=== PATIENT | female | born 2000 | race Two or more races ===

== ENCOUNTER 2024-06-13 13:05 | Outpatient (OUT) | payer OTHER, SELFPAY ==
--- NOTE | 2024-06-13 13:08 | US_ITS ---
[address] [address] Patient Name: ABBEY MORALES MRN: [id number] date: 2000 Sex: F Assigned Patient Location: [facility] Current Patient Location: [facility] Accession/Order Number: [id number] Exam Date: 06/13/2024 13:08 Report Date: 06/13/2024 14:17 At the request of: REMI VILLA Procedure: US OB >= 14 weeks Fetus EXAMINATION: US OB >= 14 weeks Fetus HISTORY: MISSED MENSES COMPARISON: No relevant comparison available. TECHNIQUE: Transabdominal sonographic examination was performed for obstetrical and evaluation. FINDINGS: Number: 1 Heart Rate: 142 bpm H.B. /min Amniotic Fluid Volume: 12.8 cm, largest fluid pocket 4.1 cm Placental Location: Cephalic presentation, longitudinal lie Cervix Length: 4.1 cm, closed BIOMETRY: BPD: 8.41 cm; 33 weeks 6 days; HC: 31.64 cm; ; 35 weeks 4 days AC: 32.11 cm; ; 36 weeks 0 days FL: 7.17 cm; ; 36 weeks 5 days EFW:2566.73 g; 6 lbs. 3 oz. FL/AC: 22.33 FL/BPD: 85.26 HC/AC: 0.99 GESTATIONAL AGE: Age by EDC: Unknown Age by current US: 35 weeks 4 days UMANG by current US: 2024-07-14 US/US OB >= 14 weeks Fetus IMPRESSION: Viable amaral intrauterine gestation measuring 35 weeks 4 days *Reference: [facility] Practice Guideline for the performance of Obstetric Ultrasound Examinations, July 02, 2007. Electronically authenticated by: DAGMAR PARRA Date: 06/13/2024 14:17
== END 2024-06-13 13:06 | disposition home or self-care (01) ==
LOC: NOMS 13:06
PROVIDERS: Visit Provider Obstetrics & Gynecology
DX: Z34.93 Encounter for supervision of normal pregnancy, unspecified, third trimester (principal); Z3A.35 35 weeks gestation of pregnancy; N92.6 Irregular menstruation, unspecified
CPT/HCPCS: 76815

== ENCOUNTER 2024-06-18 19:36 | Outpatient (REF) | payer OTHER, SELFPAY | END 2024-06-18 19:37 | disposition home or self-care (01) | LOC: LAB 19:36 | PROVIDERS: Visit Provider Obstetrics & Gynecology | DX: Z34.93 Encounter for supervision of normal pregnancy, unspecified, third trimester (principal) | CPT/HCPCS: 87081; 87150 ==

== ENCOUNTER 2024-06-25 14:08 | Outpatient (OUT) | payer OTHER, SELFPAY ==
--- NOTE | 2024-06-25 | US_ITS ---
[address] [address] Patient Name: ABBEY OMRALES MRN: [id number] date: 2000 Sex: F Assigned Patient Location: [facility] Current Patient Location: Accession/Order Number: [id number] Exam Date: 06/25/2024 14:36 Report Date: 06/26/2024 04:19 At the request of: REMI VILLA Procedure: US OB BPP w non-stress EXAMINATION: US OB BPP w non-stress HISTORY:LATE CARE COMPARISON: No relevant comparison available. TECHNIQUE: Ultrasound biophysical profile was performed in the radiology department. BREATHING MOVEMENTS: 2 GROSS BODY MOVEMENTS: 2 TONE: 2 QUALITATIVE AMNIOTIC FLUID VOLUME: 2 PRESENTATION: CEPHALIC HEART RATE: 145.95 bpm AMNIOTIC FLUID VOLUME: 8.24 cm GESTATIONAL AGE: 37 weeks 2 days US/US OB BPP w non-stress IMPRESSION: Total biophysical profile score: 8 Electronically authenticated by: AMBREEN DOWNEY Date: 06/26/2024 04:19
--- OUTSIDE RECORDS SUMMARY | 2024-06-25 14:32 | XMS_ITS | CCD ---
Author Organization [facility] Care Team Providers Care Molecular Biology Scientist Name Role Phone DAISY ., DR KHALIL Admitting Unavailable DAISY ., DR KHALIL Attending Unavailable REQUEST, DR CENTENO LISTED Primary Care Unavaila ble DAISY ., DR KHALIL Consulting Unavailable ZieberSteven Consulting Unavailable DAISY ., DR KHALIL Attending Unavailable REQUEST, DR CENTENO LISTED Primary Care Unavaila ble ADISY ., DR KHALIL Admitting Unavailable DAISY ., DR KHALIL Admitting Unavailable REQUEST, DR CENTENO LISTED Primary Care Unavaila ble DAISY ., DR KHALIL Attending Unavailable DAISY ., DR KHALIL Consulting Unavailable ZiSteven rudd Consulting Unavailable DAISY ., DR KHALIL Procedure Practitioner Unavail able KARASIK ., DR MAYNARD Consulting Unavailabl e DAISY ., DR KHALIL Admitting Unavailable REQUEST, DR CENTENO LISTED Primary Care Unavaila ble DAISY ., DR KHALIL Attending Unavailable DAISY ., DR KHALIL Consulting Unavailable DAISY ., DR KHALIL Admitting Unavailable DAISY ., DR KHALIL Attending Unavailable REQUEST, DR CENTENO LISTED Primary Care Unavaila ble WEST, DR DAGMAR Dennis Consulting Unavailable DAISY ., DR KHALIL Admitting Unavailable REQUEST, DR CENTENO LISTED Primary Care Unavaila ble DAISY ., DR KHALIL Attending Unavailable DAISY ., DR KHALIL Consulting Unavailable DAISY ., DR KHALIL Admitting Unavailable REQUEST, DR CENTENO LISTED Primary Care Unavaila ble DAISY ., DR KHALIL Attending Unavailable ZEINAB ., VENITA Consulting Unavailable REQUEST, DR CENTENO LISTED Primary Care Unavaila ble ZEINAB ., VENITA Admitting Unavailable ZEINAB ., VENITA Attending Unavailable DIASY ., DR KHALIL Admitting Unavailable FILLMORE, DR DAGMAR Dennis Consulting Unavailable REQUEST, DR NONE LISTED Primary Care Unavaila guilherme VILLA ., DR KHALIL Attending Unavailable DAISY ., DR KHALIL Consulting Unavailable [facility] Primary Care Provider DO [facility] DO Channing Riley Emergency Provider Mikel Blount Attending Unavailable [facility] Primary Care Unavaila Mikel Jurado Admitting Unavailable [facility] Primary Care Unavaila Channing Niño Admitting Unavailable Channing Riley Attending Unavailable RMEI VILLA Attending Unavailable Allergies Allergy Classification Reported Allergen(s) Allergy Type Date of Onset Reaction(s) Facility (2 sources) diphenhydrAMINE Drug Allergy 10-02-19 20 [facility] (2 sources) Penicillin Drug Allergy 10-02-19 10 [facility] (3 sources) Amoxicillin; Translations: [amoxicillin] Drug Allergy 08-28-20 Unknown Reaction [facility] (3 sources) diphenhydrAMINE; Translations: [diphenhydramine] Drug Allergy 08-28-20 [facility] (3 sources) Penicillins; Translations: [Penicillins] Allergy to substance 08-28-20 Unknown Reaction [facility] Medications Current Medications Medication Drug Class(es) Dates Sig (Normalized) Sig (Original) fluticasone propionate 0.05 mg/actuat metered dose nasal spray (1 source) Corticosteroid Start: 01-05-2024 take 1 spray(s) nasal route twice daily Fluticasone Propionate (24 Hour Allergy Relief) 50 mcg/actuation spray,suspension Active 1 SPRAY INTRANASAL Twice daily January 05, 2024 12:00am administer into each nostril Completed/Discontinued Medications Medication Drug Class(es) Dates Sig (Normalized) Sig (Original) acetaminophen 325 mg oral tablet (2 sources) Start: 10-03-2017 End: 11-25-2018 Acetaminophen (Tylenol) 325 mg Tablet Discontinued 500 MG PO Q8H October 03, 2017 1:00am November 25, 2018 1:31am [id number] 200 actuat albuterol 0.09 mg/actuat metered dose inhaler (4 sources) beta2-Adrenergic Agonist Start: 12-07-2019 End: 01-05-2024 take 1 puff(s) by inhalation four times daily Albuterol Sulfate Discontinued 2 PUFF INHALATION Four times daily December 07, 2019 1:00am January 05, 2024 5:42am Start: 01-25-2018 End: 11-25-2018 take 1 puff(s) by inhalation every six hours Albuterol Sulfate Discontinued 1 - 2 PUFF INHALATION Q6H January 25, 2018 12:00am November 25, 2018 1:31am Start: 01-25-2018 End: 11-25-2018 take 1 puff(s) by inhalation every six hours Albuterol Sulfate Discontinued 1 - 2 PUFF INHALATION Q6H January 24, 2018 11:00pm November 25, 2018 12:31am chlorhexidine gluconate 1.2 mg/ml mouthwash (2 sources) Start: 04-18-2022 End: 08-28-2023 take 1 mL by mouth twice daily Chlorhexidine Gluconate (Peridex) 0.12 % Mouthwash Discontinued 15 ML MUCOUS MEM Twice daily April 18, 2022 12:00am August 28, 2023 2:15am rinse mouth for at least 30 secs clindamycin 300 mg oral capsule (4 sources) Lincosamide Antibacterial Start: 04-18-2022 End: 01-05-2024 take 1 capsule by mouth three times daily Clindamycin Hcl (Cleocin Hcl) 300 mg capsule Discontinued 300 MG PO Three times daily 21 04August 28, 2023 1:00am January 05, 2024 5:42am cyclobenzaprine hydrochloride 10 mg oral tablet (2 sources) Muscle Relaxant Start: 04-29-2019 End: 12-07-2019 take 10 mg by mouth three times daily Cyclobenzaprine Discontinued 10 MG PO Three times daily April 29, 2019 12:00am December 07, 2019 12:40pm docusate sodium 100 mg oral capsule (2 sources) Start: 03-31-2021 End: 01-05-2024 take 1 capsule by mouth once daily Docusate Sodium (Stool Softener) 100 mg capsule Discontinued 100 MG PO Daily March 31, 2021 12:00am January 05, 2024 5:42am Doxylamine-Pyridoxin e (Vit B6) (Diclegis) 10-10 mg tablet,delayed release (DR/EC) (2 sources) Start: 05-30-2020 End: 03-31-2021 take 1 tablet by mouth twice daily Doxylamine-Pyridoxin e (Vit B6) (Diclegis) 10-10 mg tablet,delayed release (DR/EC) Discontinued 1 TAB PO Twice daily May 30, 2020 11:22pm March 31, 2021 6:01pm Start: 05-30-2020 End: 03-31-2021 take 1 tablet by mouth twice daily Doxylamine-Pyridoxine (Vit B6) (Diclegis ) 10-10 mg tablet,delayed release (DR/EC) Discontinued 1 TAB PO Twice daily May 30, 2020 10:22pm March 31, 2021 5:01pm ferrous sulfate 325 mg oral tablet (2 sources) Start: 03-31-2021 End: 01-05-2024 take 1 tablet by mouth once daily Ferrous Sulfate (Ferosul) 325 mg (65 mg iron) tablet Discontinued 325 MG PO Daily March 31, 2021 12:00am January 05, 2024 5:42am ibuprofen 800 mg oral tablet (2 sources) Nonsteroidal Anti-inflammato ry Drug Start: 04-29-2019 End: 12-07-2019 take 800 mg by mouth three times daily Ibuprofen Discontinued 800 MG PO Three times daily April 29, 2019 12:00am December 07, 2019 12:40pm meclizine hydrochloride 25 mg oral tablet (2 sources) Antiemetic Start: 10-03-2017 End: 01-25-2018 take 25 mg by mouth three times daily Meclizine Discontinued 25 MG PO Three times daily October 03, 2017 1:00am January 25, 2018 6:48am 1 ml medroxyPROGESTERone acetate 150 mg/ml prefilled syringe (2 sources) Progestin Start: 10-03-2017 End: 11-25-2018 inject 150 mg by intramuscular injection every three months Medroxyprogesterone (Depo-Provera) 150 mg/mL Syringe Discontinued 150 MG IM EVERY 3 MONTHS October 03, 2017 1:00am November 25, 2018 1:31am omeprazole 20 mg delayed release oral capsule (4 sources) Proton Pump Inhibitor Start: 05-30-2020 End: 01-05-2024 take 20 mg by mouth before mealtime Omeprazole Discontinued 20 MG PO Before meals May 30, 2020 12:00am January 05, 2024 5:42am Start: 04-06-2019 End: 12-07-2019 take 20 mg by mouth once daily Omeprazole Discontinued 20 MG PO Daily 60 April 06, 2019 12:00am December 07, 2019 12:40pm Prenat.Vits,Felipe,Ajc-Kgdj-Cot ic (2 sources) Start: 05-30-2020 End: 03-31-2021 take 1 tablet by mouth once daily Prenat.Vits,Felipe,Lmp-Csmy-Zmjya Discontinued 1 TAB PO Daily 60 May 30, 2020 12:00am March 31, 2021 6:01pm Start: 05-30-2020 End: 03-31-2021 take 1 tablet by mouth once daily Prenat.Vits,Felipe,Knx-Zmdy-Nwdcv Discontin ued 1 TAB PO Daily 60 May 29, 2020 11:00pm March 31, 2021 5:01pm Problems Active Problems Problem Classification Problem Date Documented Date Episodic/Chronic Abdominal pain (4 sources) Nonspecific abdominal pain; Translations: [Unspecified abdominal pain] 12-07-2019 Episodic Anxiety disorders (2 sources) Anxiety; Translations: [Anxiety disorder, unspecified] 01-25-2018 Chronic Conditions associated with dizziness or vertigo (2 sources) Benign paroxysmal positional vertigo; Translations: [Benign paroxysmal vertigo, unspecified ear] 10-03-2017 Episodic Deficiency and other anemia (1 source) Anemia, unspecified; Translations: [ANEMIA UNSPECIFIED] Onset: 11-01-2022 Episodic Disorders of teeth and jaw (8 sources) Dental caries; Translations: [Dental caries, unspecified] 04-18-2022 Episodic Headache; including migraine (2 sources) Headache; Translations: [Headache] 10-03-2017 Episodic Immunizations and screening for infectious disease (1 source) Encounter for screening for infections with a predominantly sexual mode of transmission; Translations: [ENC SCREEN INFECTIONS SEXL TRANSMS] Onset: 10-22-2022 Episodic Menstrual disorders (4 sources) Irregular menstruation, unspecified; Translations: [IRREGULAR MENSTRUATION UNSPECIFIED] Onset: 04-14-2022 Chronic Other complications of ; puerperium affecting management of mother (1 source) Streptococcus B carrier state complicating childbirth; Translations: [STREP B CHAVEZ STATE COMP CHILDBIRTH] Onset: 11-21-2022 Episodic Other complications of (4 sources) Anemia complicating , unspecified trimester; Translations: [ANEMIA COMP UNS TRIMESTER] Onset: 10-24-2022 Chronic Other complications of (4 sources) Maternal care for excessive growth, third trimester, not applicable or unspecified; Translations: [MAT CARE EXCSS FTL GRTH 3RD TRI UNS] Onset: 10-24-2022 Episodic Other complications of (4 sources) Other specified related conditions, unspecified trimester; Translations: [OTH SPEC PREG RELATED COND UNS TRI] Onset: 10-18-2022 Episodic Other ear and sense organ disorders (1 source) Otalgia, left ear; Translations: [Otalgia, left ear] Onset: 01-05-2024 Episodic Other female genital disorders (1 source) Other specified noninflammatory disorders of vagina; Translations: [OTH SPEC NONINFLAMMATORY D/O VAGINA] Onset: 10-22-2022 Episodic Other and delivery including normal (3 sources) Single live ; Translations: [] Onset: 11-21-2022 04-18-2022 Episodic Other screening for suspected conditions (not mental disorders or infectious disease) (8 sources) Encounter for other screening follow-up; Translations: [Encounter for other specified screening] Onset: 07-05-2022 Episodic Residual codes; unclassified (1 source) 40 weeks gestation of ; Translations: [40 WEEKS GESTATION OF ] Onset: 11-21-2022 Episodic Residual codes; unclassified (1 source) Weeks of gestation of not specified; Translations: [WEEKS GESTATION NOT SPEC] Onset: 11-01-2022 Episodic Sprains and strains (4 sources) Hand muscle strain; Translations: [Strain of unspecified muscle, fascia and tendon at wrist and hand level, unspecified hand, initial encounter] 03-31-2021 Episodic Unclassified (1 source) Other specified disorders of teeth and supporting structures; Translations: [Other specified disorders of teeth and supporting structures] Onset: 08-28-2023 Past or Other Problems Problem Classification Problem Date Documented Da te Episodic/Chronic Residual codes; unclassified (1 source) 9 weeks gestation of ; Translations: [9 WEEKS GESTATION OF ] Onset: 04-15-2022 Episodic Results Test Name Value Interpretation Reference Range Facil ity CBC AUTO DIFFon 11-15-2022 BASO # 0.0 103/ul Normal 0.0-0.1 [facility] Comment on above: Performed By: #### C BC #### [facility] [address] [address] [address] Marshal Diaz Basophils/100 WBC (Bld) 0.3 % Normal 0.2-2.0 [facility] Comment on above: Performed By: #### C BC #### [facility] [address] [address] [address] Marshal Diaz EO # 0.1 103/ul Normal 0.0-0.7 [facility] Comment on above: Performed By: #### C BC #### [facility] [address] [address] [address] Marshal Diaz Eosinophils/100 WBC (Bld) 1.4 % Normal 0.9-7.0 [facility] Comment on above: Performed By: #### C BC #### [facility] [address] [address] [address] Marshal Diaz Erythrocyte distribution width (RBC) [Ratio] 24.2 % Critically high 11.0-15.0 [facility] Comment on above: Performed By: #### C BC #### [facility] [address] [address] [address] Marshal Diaz Hematocrit (Bld) [Volume fraction] 31.7 % Critically low 36.0-48.0 [facility] Comment on above: Performed By: #### C BC #### [facility] [address] [address] [address] Marshal Diaz Hemoglobin (Bld) [Mass/Vol] 10.1 g/dL Critically low 12.0-16.0 [facility] Comment on above: Performed By: #### C BC #### [facility] [address] [address] [address] Marshal Diaz IG # 0.05 10e3/ul Critically high 0.00-0.03 [facility] Comment on above: Performed By: #### C BC #### [facility] [address] [place] [address] Dr. Marshal Diaz IG % 0.7 % Critically high 0.0-0.5 [facility] Comment on above: Performed By: #### C BC #### [facility] [address] [place] [address] Dr. Marshal Diaz LYMPH # 2.3 103/ul Normal 1.2-3.8 [facility] Comment on above: Performed By: #### C BC #### [facility] [address] [place] [address] Dr. Marshal Diaz Lymphocytes/100 WBC (Bld) 30.0 % Normal 20.5-60.0 [facility] Comment on above: Performed By: #### C BC #### [facility] [address] [place] [address] Dr. Marshal Diaz MANUAL DIFF REQ NO Normal [facility] Comment on above: Performed By: #### C BC #### [facility] [address] [place] [address] Dr. Marshal Diaz MCH (RBC) [Entitic mass] 25.7 pg Critically low 26.7-34.0 [facility] Comment on above: Performed By: #### C BC #### [facility] [address] [place] [address] Dr. Marshal Diaz MCHC (RBC) [Mass/Vol] 31.9 g/dL Normal 29.9-35.2 [facility] Comment on above: Performed By: #### C BC #### [facility] [address] [place] [address] Dr. Marshal Diaz MCV (RBC) [Entitic vol] 80.7 fL Critically low 81.0-99.0 [facility] Comment on above: Performed By: #### C BC #### [facility] [address] [place] [address] Dr. Marshal Diaz MONO # 0.6 103/ul Normal 0.3-0.8 [facility] Comment on above: Performed By: #### C BC #### [facility] [address] [place] [address] Dr. Marshal Diaz Monocytes/100 WBC (Bld) 8.4 % Normal 1.7-12.0 [facility] Comment on above: Performed By: #### C BC #### [facility] [address] [place] [address] Dr. Marshal Diaz NEUT # 4.5 103/ul Normal 1.4-6.5 [facility] Comment on above: Performed By: #### C BC #### [facility] [address] [place] [address] Dr. Marshal Diaz Neutrophils/100 WBC (Bld) 59.2 % Normal 43.0-75.0 [facility] Comment on above: Performed By: #### C BC #### [facility] [address] [place] [address] Dr. Marshal Diaz Platelet mean volume (Bld) [Entitic vol] 10.1 fL Normal 9.5-13.5 [facility] Comment on above: Performed By: #### C BC #### [facility] [address] [place] [address] Dr. Marshal Diaz PLT 254 103/ul Normal 150-450 [facility] Comment on above: Performed By: #### C BC #### [facility] [address] [place] [address] Dr. Marshal Diaz RBC 3.93 106/ul Critically low 4.20-5.40 [facility] Comment on above: Performed By: #### C BC #### [facility] [address] [place] [address] Dr. Marshal Diaz WBC 7.6 103/ul Normal 4.0-11.0 [facility] Comment on above: Performed By: #### C BC #### [facility] [address] [place] [address] Dr. Marshal Diaz CBC AUTO DIFFon 11-14-2022 BASO # 0.0 103/ul Normal 0.0-0.1 [facility] Comment on above: Performed By: #### C BC #### [facility] [address] [address] [address] Marshal Diaz Basophils/100 WBC (Bld) 0.3 % Normal 0.2-2.0 [facility] Comment on above: Performed By: #### C BC #### [facility] [address] [address] [address] Marshal Diaz EO # 0.0 103/ul Normal 0.0-0.7 [facility] Comment on above: Performed By: #### C BC #### [facility] [address] [place] [address] Dr. Marshal Diaz Eosinophils/100 WBC (Bld) 0.6 % Critically low 0.9-7.0 [facility] Comment on above: Performed By: #### C BC #### [facility] [address] [place] [address] Dr. Marshal Diaz Erythrocyte distribution width (RBC) [Ratio] 24.0 % Critically high 11.0-15.0 [facility] Comment on above: Performed By: #### C BC #### [facility] [address] [place] [address] Dr. Marshal Diaz Hematocrit (Bld) [Volume fraction] 33.3 % Critically low 36.0-48.0 [facility] Comment on above: Performed By: #### C BC #### [facility] [address] [place] [address] Dr. Marshal Diaz Hemoglobin (Bld) [Mass/Vol] 10.9 g/dL Critically low 12.0-16.0 [facility] Comment on above: Performed By: #### C BC #### [facility] [address] [place] [address] Dr. Marshal Diaz IG # 0.04 10e3/ul Critically high 0.00-0.03 [facility] Comment on above: Performed By: #### C BC #### [facility] [address] [place] [address] Dr. Marshal Diaz IG % 0.6 % Critically high 0.0-0.5 [facility] Comment on above: Performed By: #### C BC #### [facility] [address] [address] [address] Marshal Diaz LYMPH # 1.4 103/ul Normal 1.2-3.8 [facility] Comment on above: Performed By: #### C BC #### [facility] [address] [place] [address] Dr. Marshal Diaz Lymphocytes/100 WBC (Bld) 20.3 % Critically low 20.5-60.0 [facility] Comment on above: Performed By: #### C BC #### [facility] [address] [place] [address] Dr. Marshal Diaz MANUAL DIFF REQ NO Normal [facility] Comment on above: Performed By: #### C BC #### [facility] [address] [place] [address] Dr. Marshal Diaz MCH (RBC) [Entitic mass] 26.0 pg Critically low 26.7-34.0 [facility] Comment on above: Performed By: #### C BC #### [facility] [address] [place] [address] Dr. Marshal Diaz MCHC (RBC) [Mass/Vol] 32.7 g/dL Normal 29.9-35.2 [facility] Comment on above: Performed By: #### C BC #### [facility] [address] [place] [address] Dr. Marshal Diaz MCV (RBC) [Entitic vol] 79.3 fL Critically low 81.0-99.0 [facility] Comment on above: Performed By: #### C BC #### [facility] [address] [place] [address] Dr. Marshal Diaz MONO # 0.5 103/ul Normal 0.3-0.8 [facility] Comment on above: Performed By: #### C BC #### [facility] [address] [place] [address] Dr. Marshal Diaz Monocytes/100 WBC (Bld) 7.0 % Normal 1.7-12.0 [facility] Comment on above: Performed By: #### C BC #### [facility] [address] [place] [address] Dr. Marshal Diaz NEUT # 5.0 103/ul Normal 1.4-6.5 [facility] Comment on above: Performed By: #### C BC #### [facility] [address] [place] [address] Dr. Marshal Diaz Neutrophils/100 WBC (Bld) 71.2 % Normal 43.0-75.0 [facility] Comment on above: Performed By: #### C BC #### [facility] [address] [place] [address] Dr. Marshal Diaz Platelet mean volume (Bld) [Entitic vol] 10.0 fL Normal 9.5-13.5 [facility] Comment on above: Performed By: #### C BC #### [facility] [address] [place] [address] Dr. Marshal Diaz PLT 242 103/ul Normal 150-450 [facility] Comment on above: Performed By: #### C BC #### [facility] [address] [place] [address] Dr. Marshal Diaz RBC 4.20 106/ul Normal 4.20-5.40 [facility] Comment on above: Performed By: #### C BC #### [facility] [address] [place] [address] Dr. Marshal Diaz WBC 7.0 103/ul Normal 4.0-11.0 [facility] Comment on above: Performed By: #### C BC #### [facility] [address] [place] [address] Dr. Marshal Diaz DRUG SCREEN RAPID (URINE)on 11-14-2022 AMP Negative Normal NEGATIVE [facility] Comment on above: Performed By: #### D RUGRPD #### [facility] [address] [place] [address] Dr. Marshal Diaz BAR Negative Normal NEGATIVE [facility] Comment on above: Performed By: #### D RUGRPD #### [facility] [address] [place] [address] Dr. Marshal Diaz BUP Negative Normal NEGATIVE [facility] Comment on above: Performed By: #### D RUGRPD #### [facility] [address] [place] [address] Dr. Marshal Diaz BZO Negative Normal NEGATIVE [facility] Comment on above: Performed By: #### D RUGRPD #### [facility] [address] [place] [address] Dr. Marshal Diaz JOVANY Negative Normal NEGATIVE [facility] Comment on above: Performed By: #### D RUGRPD #### [facility] [address] [place] [address] Dr. Marshal Diaz CUT-OFFS SEE BELOW Normal [facility] Comment on above: Result Comment: AMP (Amphetamine): 500ng/mL, BAR (Barbituates): 200 ng/mL, BZO (Benzodiazepines): 150 ng/mL, BUP (Buprenorphine): 10 ng/mL, JOVANY (Cocaine): 150 ng/mL, mAMP (Methamphetamine): 500 ng/mL, MTD (Methadone): 200 ng/mL, OPI (Opiates): 100 ng/mL, OXY (Oxycodone): 100 ng/mL, PCP (Phencyclidine): 25 ng/mL, PPX (Propoxyphene): 300 ng/mL, THC (Cannabinoids): 50 ng/mL, TCA (Trycyclic Antidepressants): 300 ng/mL Performed By: #### D RUGRPD #### [facility] [address] [place] [address] Dr. Marshal Diaz DRUG CUT HEADER DRUG CLASS TEST SYSTEM CUT-OFF CONCENTRATIONS ARE FOLLOWS: Normal [facility] Comment on above: Performed By: #### D RUGRPD #### [facility] [address] [place] [address] Dr. Marshal Diaz mAMP Negative Normal NEGATIVE [facility] Comment on above: Performed By: #### D RUGRPD #### [facility] [address] [place] [address] Dr. Marshal Diaz MTD Negative Normal NEGATIVE [facility] Comment on above: Performed By: #### D RUGRPD #### [facility] [address] [place] [address] Dr. Marshal Diaz OPI Negative Normal NEGATIVE [facility] Comment on above: Performed By: #### D RUGRPD #### [facility] [address] [place] [address] Dr. Marshal Diaz OXY Negative Normal NEGATIVE [facility] Comment on above: Performed By: #### D RUGRPD #### [facility] [address] [place] [address] Dr. Marshal Diaz PCP Negative Normal NEGATIVE [facility] Comment on above: Performed By: #### D RUGRPD #### [facility] [address] [place] [address] Dr. Marshal Diaz PPX Negative Normal NEGATIVE [facility] Comment on above: Performed By: #### D RUGRPD #### [facility] [facility] [address] [place] [address] Dr. Marshal Diaz TCA Negative Normal NEGATIVE [facility] Comment on above: Performed By: #### D RUGRPD #### [facility] [address] [place] [address] Dr. Marshal Diaz THC Negative Normal NEGATIVE [facility] Comment on above: Performed By: #### D RUGRPD #### [facility] [address] [place] [address] Dr. Marshal Diaz TYPE AND SCREENon 11-14-2022 TYPE AND SCREEN Negative Normal [facility] Comment on above: Performed By: #### T NS #### [facility] [address] [place] [address] Dr. Marshal Diaz GROUP B STREP CULTUREon 10-03 S. agalactiae Ag Ql (Unsp spec) Isolate 1 Streptococcus agalactiae Light growth of ORGANISM 1 Streptococcus agalactiae ANTIBIOTIC M.I.C RX STATUS Benzylpenicillin <=0.06 S F Ampicillin <=0.25 S F Cefotaxime <=0.12 S F Ceftriaxone <=0.12 S F Levofloxacin 0.5 S F Inducible Clindamycin Resistance Neg NEG F Erythromycin >=8 R F Clindamycin >=1 R F Linezolid <=2 S F Vancomycin 0.5 S F Tetracycline >=16 R F Normal [facility] Comment on above: Performed By: #### G BSCX #### [facility] [address] [address] [address] Marshal Diaz CHLAMYDIA/GONOCOCCUS HANNAH ( AB/URINE/PAPon 10-21-2022 Chlamydia trachomatis, HANNAH Negative Normal Negative [facility] Comment on above: Performed By: #### C T/NGNA #### [facility] [address] [address] [address] Marshal Diaz Neisseria gonorrhoeae, HANNAH Negative Normal Negative [facility] Comment on above: Performed By: #### C T/NGNA #### [facility] [address] [place] [address] Dr. Marshal Diaz VAGINITIS/VAGINOSIS DNA PROB Doroteo 10-20-2022 Joanne species Positive Abnormal Negative [facility] Comment on above: Performed By: #### V AGINT #### [facility] [address] [place] [address] Dr. Marshal Diaz Gardnerella vaginalis Positive Abnormal Negative [facility] Comment on above: Performed By: #### V AGINT #### [facility] [address] [place] [address] Dr. Marshal Diaz Trichomonas vaginalis Negative Normal Negative [facility] Comment on above: Performed By: #### V AGINT #### [facility] [address] [place] [address] Dr. Marshal Diaz US PREG GROWTHon 10-18-2022 US PREG GROWTH EXAMINATION: US PREG GROWTH HISTORY: Large for gestation age fetus COMPARISON: No relevant comparison available. FINDINGS: Heart Rate: 140.0 bpm Amniotic Fluid Volume: 9.7 cm Number: 1.0 Position: Cephalic presentation, longitudinal lie Maximum Vertical Pocket: 1.3 cm cm 4.0 cm cm 2.0 cm cm 2.4 cm cm BIOMETRY: BPD: 8.7 cm cm; 35 weeks 1 days; 24% HC: 32.5 cmcm; 36 weeks 6 days, 31% AC: 33.7 cm cm; 37 weeks 4 days, 88% FL: 7.3 cm cm; 37 weeks 2 days; 70.0 % % EFW: 3128.1 grams, 6 lbs. 14 oz., 73% FL/AC: 21.6 FL/BPD: 83.9 HC/AC: 1.0 GESTATIONAL AGE: Age by EDC: 36 weeks 3 days UMANG by EDC: 11/12/2022 Age by US: 36 weeks 5 days UMANG by US: 11/10/2022 IMPRESSION: Normal interval growth Electronically authenticated by: DAGMAR PARRA Date: 2022-10-18 16:21 Normal [facility] US PREG INCOMPLETE ANATOMYon 10-11-2022 US PREG INCOMPLETE ANATOMY EXAMINATION: US PREG INCOMPLETE ANATOMY HISTORY: screening COMPARISON: Ultrasound anatomy 07/05/2022 FINDINGS: Heart rate: 146 bpm Presentation: Cephalic Anatomy: Spine adequately visualized. GA: 35 weeks 3 days UMANG: 11/12/2022 IMPRESSION: 1. Single live intrauterine . 2. Adequate visualization of the spine without appreciable abnormality. Electronically authenticated by: STEVEN DOWNEY Date: 2022-10-11 10:38 Normal [facility] US PREG ANATOMY SINGLEon US PREG ANATOMY SINGLE EXAMINATION: US PREG ANATOMY SINGLE HISTORY: anatomy study COMPARISON: No relevant comparison available. TECHNIQUE: Transabdominal sonographic examination was performed for obstetrical and evaluation. FINDINGS: Number: 1 Heart Rate: 154.0 bpm H.B. /min Amniotic Fluid Volume: Subjectively normal Placental Location: Posterior with lower margin 6.3 cm from os. Cervix Length: 5.5 cm, closed. ANATOMY: Normal Structures -cerebellum, choroid plexus, cisterna magna, lateral cerebral ventricles, orbits, midline falx, hard palate, four-chamber heart, RVOT, LVOT, stomach, kidneys, bladder, umbilical cord insertion into abdomen, three-vessel cord, cervical spine, thoracic spine, lumbar spine, sacral spine, right upper extremity, left upper extremity, right lower extremity, left lower extremity. SUBOPTIMALLY SEEN: Spine (due to position). ABNORMALITIES: None BIOMETRY: BPD: 4.8 cm 20 weeks 4 days HC: 18.3 cm 20 weeks 5 days AC: 16.6 cm 21 weeks 4 days FL: 3.7 cm 21 weeks 5 days EFW:430.8 grams; 50% FL/AC: 22.3 FL/BPD: 76.2 HC/AC: 1.1 GESTATIONAL AGE: Age by EDC: 21 weeks 3 days UMANG by EDC: 11/12/2022 Age by current US: 21 weeks 1 days UMANG by current US: 11/14/2022 IMPRESSION: 1. Single live intrauterine with growth detailed above. 2. Suboptimal visualization of the spine due to position. Electronically authenticated by: STEVEN DOWNEY Date: 2022-07-05 20:47 Normal [facility] US PREG TVon 04-15-2022 US PREG TV EXAMINATION: US PREG TV HISTORY: Irregular periods COMPARISON: No relevant comparison available. FINDINGS: Transvaginal images Amaral intrauterine gestation Gestational sac: 4.5 cm, 9 weeks 5 days CRL: 2.72 cm, 9 weeks 4 days Yolk sac: 3.5 mm Heart rate: 171 bpm Cervix: Closed, 4.5 cm The uterus is normal in appearance, anteverted. The right ovary is normal in appearance measuring 3.0 x 1.8 x 2.5 cm. The left ovary measures 3.4 x 2.5 x 2.0 cm, corpus luteal cyst. Clinical age: Unknown Ultrasound age: 9 weeks 5 days Ultrasound UMANG: 11/12/2022 IMPRESSION: Viable amaral intrauterine gestation measuring 9 weeks 5 days Electronically authenticated by: DAGMAR PARRA Date: 2022-04-15 07:36 Normal [facility] Vital Signs Date Time Vital Sign Value Performing Clinician Gracia lopez 01-05-2024 05:41-0400 Body height 172.72 cm Services [facility] Work Phone: [facility] 01-05-2024 05:41-0400 Body temperature 97.9 [degF] [facility] Work Phone: [facility] 01-05-2024 05:41-0400 Body weight 112 kg [facility] Work Phone: [facility] 01-05-2024 05:41-0400 Diastolic blood pressure 107 mm[Hg] [facility] Work Phone: [facility] 01-05-2024 05:41-0400 Heart rate 86 /min Services [email or web address] Work Phone: [facility] 01-05-2024 05:41-0400 Respiratory rate 18 /min [facility] Work Phone: [facility] 01-05-2024 05:41-0400 SaO2% (BldA) [Mass fraction] 99 % [facility] Work Phone: [facility] 01-05-2024 05:41-0400 Systolic blood pressure 160 mm[Hg] [facility] Work Phone: [facility] 08-28-2023 01:16-0500 Body temperature 98.1 [degF] [facility] Work Phone: [facility] 08-28-2023 01:16-0500 Diastolic blood pressure 82 mm[Hg] [facility] Work Phone: [facility] 08-28-2023 01:16-0500 Heart rate 71 /min [facility] Work Phone: [facility] 08-28-2023 01:16-0500 Respiratory rate 18 /min [facility] Work Phone: [facility] 08-28-2023 01:16-0500 SaO2% (BldA) [Mass fraction] 100 % [facility] Work Phone: [facility] 08-28-2023 01:16-0500 Systolic blood pressure 126 mm[Hg] [facility] Work Phone: [facility] 08-28-2023 01:15-0500 Body height 170.18 cm [facility] Work Phone: [facility] 08-28-2023 01:15-0500 Body weight 113.65 kg [facility] Work Phone: [facility] Encounters Encounter Date Encounter Type Care Provider Facility Start: 06-18-2024 End: 06-18-2024 ambulatory REIM DAISY Not Available Start: 06-13-2024 End: 06-13-2024 ambulatory REMI DAISY Not Available Start: 01-05-2024 End: 01-05-2024 Emergency department patient visit [facility] Facility:[facility] Start: 01-05-2024 End: 01-05-2024 Emergency department patient visit Services [facility] Work Phone: [facility] Work Phone: Start: 08-28-2023 End: 08-28-2023 Emergency department patient visit Mikel Blount Facility:[facility] Start: 08-28-2023 End: 08-28-2023 Emergency department patient visit Services [facility] Work Phone: [facility] Work Phone: Start: 11-14-2022 End: 11-16-2022 Evaluation and management of inpatient DR REMI VILLA . Facility:[facility] Start: 10-24-2022 End: 10-31-[address] DAGMAR PARRA Facility:[facility] Start: 10-18-2022 End: 10-18-2022 ambulatory VENITA ARRIOLA . Facility:[facility] Start: 10-18-2022 End: 10-19-[address] REMI VILLA . Facility:[facility] Start: 10-11-2022 End: 10-12-[address] REMI VILLA . Facility:[facility] Start: 08-18-[address] REMI VILLA . Facili ty:[facility] Start: 07-05-2022 End: 07-06-[address] REMI VILLA . Facility:[facility] Start: 06-10-[address] REMI VILLA . Facili ty:[facility] Start: 04-14-2022 End: 04-15-[address] REMI VILLA . Facility: Procedures Date Procedure Procedure Detail Performing Clinician Start: 11-14-2022 Delivery of Products of Conception, External Approach DR REMI VILLA . Plan of Treatment Date Care Activity Detail Author Patient Education [facility] Work Phone: Patient referral [facility] Work Phone: Payers Date Payer Category Payer Unknown [id number] 1998 Unknown [id number] 1998 Unknown [id number] 1998 Unknown [id number] 1998 Unknown [id number] 1998 Unknown [id number] 1998 Unknown [id number] 1998 Unknown [id number] 1998 Unknown [id number] 1998 Unknown [id number] 1998 Unknown [id number] 1959 Self-pay 1959 Unknown [id number] 1959 Unknown [id number] Unknown [id number] Unknown [id number] Worker's Compensation [facility] [id number] Social History Date Type Detail Facility Start: 08-28-2023 End: 01-05-2024 Tobacco smoking status NHIS Never smoked tobacco (finding) [facility] Start: 2000 Sex Assigned At Female F [facility] Evaluation note Note Date & Type Note Facility Evaluation note No assessment information availa ble [facility] Work Phone: Hospital Discharge instructions Note Date & Type Note Facility Hospital Discharge instructions Additional Instructions Take clindamycin as prescribed. Take Motrin Tylenol as needed for pain you can apply sensitive toothpaste to your tooth to help decrease sensitivity. Follow-up with a dentist for definitive management. [facility] Work Phone: Summary Purpose Family History No Family History Records Found Relationship Condition Age at Onset Recorded Date/T [place] Not Specified No pertinent family history Unknown Advance Directives No Advanced Directives Records Found Advance Directive Response Recorded Date/ Time Advance Directives No April 29 9:23pm Advance Directive Response Recorded Date/ Time Advance Directives No April 29 10:23pm Chief Complaint and Reason for Visit Chief Complaint Dental pain Chief Complaint ear ache, mouth pain Additional Source Comments INFORMATION SOURCE (unrecogn ized section and content) DATE CREATED AUTHOR 11/23/2022 [facility] DATE CREATED AUTHOR AUTHOR'S ORGANIZ ATION 01/18/2024 [facility] DATE CREATED AUTHOR AUTHOR'S ORGANIZ ATION 06/20/2024 [facility] EPIC Care Teams (unrecognized sec tion and content) Team Status: Active Member Role Status Dates Services [facility] Primary Care Provider Active Team Status: Inactive Member Role Status Dates Services Family [facility] Primary Care Provider Active Mikel Blount DO Emergency Provider Active Team Status: Inactive Member Role Status Dates Services Family [facility] Primary Care Provider Active Start: January 05, 2024 End: January 05, 2024 Channing Riley DO Emergency Provider Active St art: January 05, 2024 End: January 05, 2024 Goals (unrecognized section and content) Goals may be documented in a n alternate sectionGoals may be documented in an alternate section FOR RECORDS PERTAINING TO PATIENTS WHO ARE OR HAVE BEEN ENROLLED IN A CHEMICAL DEPENDENCY/SUBSTANCEABUSE PROGRAM, SOME INFORMATION MAY BE OMITTED. This clinical summary was aggregated from multiple sources. Caution should be exercised in using it in the provision of clinical care. This summary normalizes information from multiple sources, and as a consequence, information in this document may materially change the coding, format and clinical context of patient data. In addition, data may be omitted in some cases. CLINICAL DECISIONS SHOULD BE BASED ON THE PRIMARY CLINICAL RECORDS. [employer] [facility]. provides no warranty or guarantee of the accuracy or completeness of information in this document.
--- NOTE | 2024-06-25 14:35 | US_ITS ---
[address] [address] Patient Name: ABBEY MORALES MRN: [id number] date: 2000 Sex: F Assigned Patient Location: LAB Current Patient Location: LAB Accession/Order Number: [id number] Exam Date: 06/25/2024 14:36 Report Date: 06/26/2024 04:24 At the request of: REMI VILLA Procedure: US OB anatomy EXAMINATION: US OB anatomy, US OB cervical length HISTORY: Screening COMPARISON: No relevant comparison available. TECHNIQUE: Transabdominal sonographic examination was performed for obstetrical and evaluation. FINDINGS: Number: 1 Heart Rate: 145.95 bpm H.B. /min Amniotic Fluid Volume: Placental Location: ANT KELIN Cervix Length: 5.41 cm ANATOMY: Normal Structures -cerebellum, choroid plexus, cisterna magna, lateral cerebral ventricles, orbits, midline falx, hard palate, four-chamber heart, RVOT, LVOT, stomach, kidneys, bladder, umbilical cord insertion into abdomen, three-vessel cord, cervical spine, thoracic spine, lumbar spine, sacral spine, right upper extremity, left upper extremity, right lower extremity, left lower extremity. SUBOPTIMALLY SEEN: Orbits, cardiac outflow tracts, abdominal cord insertion, spine, upper extremities. ABNORMALITIES: None BIOMETRY: BPD: 8.76 cm; 35 weeks 3 days; 17.10 % HC: 32.12 cm; 36 weeks 2 days; 8.70 % AC: 32.02 cm; 36 weeks 0 days; 26.60 % FL: 7.33 cm; 37 weeks 4 days; 56.50 % EFW:2907.27 g; 32.20 % FL/AC: 22.90 FL/BPD: 83.72 HC/AC: 1.00 GESTATIONAL AGE: Age by EDC: 37 weeks 2 days Age by current US: 36 weeks 2 days UMANG by current US: 2024-07-21 UMANG by EDC: 2024-07-14 US/US OB anatomy IMPRESSION: 1. Single live intrauterine with growth detailed above. 2. Suboptimal visualization of the orbits, cardiac outflow tracts, abdominal cord insertion, spine, and upper extremities due to advanced gestational age. 3. Amniotic fluid index is 8.2 cm. Electronically authenticated by: AMBREEN DOWNEY Date: 06/26/2024 04:24
--- NOTE | 2024-06-25 14:35 | US_ITS ---
[address] [address] Patient Name: ABBEY MORALES MRN: [id number] date: 2000 Sex: F Assigned Patient Location: [facility] Current Patient Location: LAB Accession/Order Number: [id number] Exam Date: 06/25/2024 14:36 Report Date: 06/26/2024 04:24 At the request of: REMI VILLA Procedure: US OB cervical length EXAMINATION: US OB anatomy, US OB cervical length HISTORY: Screening COMPARISON: No relevant comparison available. TECHNIQUE: Transabdominal sonographic examination was performed for obstetrical and evaluation. FINDINGS: Number: 1 Heart Rate: 145.95 bpm H.B. /min Amniotic Fluid Volume: Placental Location: ANT KELIN Cervix Length: 5.41 cm ANATOMY: Normal Structures -cerebellum, choroid plexus, cisterna magna, lateral cerebral ventricles, orbits, midline falx, hard palate, four-chamber heart, RVOT, LVOT, stomach, kidneys, bladder, umbilical cord insertion into abdomen, three-vessel cord, cervical spine, thoracic spine, lumbar spine, sacral spine, right upper extremity, left upper extremity, right lower extremity, left lower extremity. SUBOPTIMALLY SEEN: Orbits, cardiac outflow tracts, abdominal cord insertion, spine, upper extremities. ABNORMALITIES: None BIOMETRY: BPD: 8.76 cm; 35 weeks 3 days; 17.10 % HC: 32.12 cm; 36 weeks 2 days; 8.70 % AC: 32.02 cm; 36 weeks 0 days; 26.60 % FL: 7.33 cm; 37 weeks 4 days; 56.50 % EFW:2907.27 g; 32.20 % FL/AC: 22.90 FL/BPD: 83.72 HC/AC: 1.00 GESTATIONAL AGE: Age by EDC: 37 weeks 2 days Age by current US: 36 weeks 2 days UMANG by current US: 2024-07-21 UMANG by EDC: 2024-07-14 US/US OB cervical length IMPRESSION: 1. Single live intrauterine with growth detailed above. 2. Suboptimal visualization of the orbits, cardiac outflow tracts, abdominal cord insertion, spine, and upper extremities due to advanced gestational age. 3. Amniotic fluid index is 8.2 cm. Electronically authenticated by: AMBREEN DOWNEY Date: 06/26/2024 04:24
[2024-06-25 14:40] LABS: Basophils Percent Auto 0.3 % (0.2-2.0); Eosinophils Percent Auto 0.5 % (0.9-7.0); Hematocrit 34.8 % (36.0-48.0); Hemoglobin 11.7 g/dL (12.0-16.0); Immature Granulocytes Abs Auto 0.04 10^3/uL (0.00-0.03); Immature Granulocytes Pct Auto 0.6 % (0.0-0.5); Lymphocytes Absolute Auto 1.5 10^3/uL (1.2-3.8); Lymphocytes Percent Auto 23.9 % (20.5-60.0); Mean Corpuscular HGB Conc 33.6 g/dL (29.9-35.2); Mean Corpuscular Hemoglobin 27.5 pg (26.7-34.0); Mean Corpuscular Volume 81.7 fL (81.0-99.0); Mean Platelet Volume 11.1 fL (9.5-13.5); Monocytes Absolute Auto 0.5 10^3/uL (0.3-0.8); Monocytes Percent Auto 7.3 % (1.7-12.0); Neutrophils Absolute Auto 4.2 10^3/uL (1.4-6.5); Neutrophils Percent Auto 67.4 % (43.0-75.0); Platelet Count 325 10^3/uL (150-450); Red Blood Count 4.26 10^6/uL (4.20-5.40); Red Cell Distribution Width 14.7 % (11.0-15.0); White Blood Count 6.2 10^3/uL (4.0-11.0)
[2024-06-25 14:46] LABS: Amphetamine Screen Urine NEGATIVE (NEGATIVE); Barbiturates Screen Urine NEGATIVE (NEGATIVE); Benzodiazepines Screen Urine NEGATIVE (NEGATIVE); Buprenorphine Screen Urine NEGATIVE (NEGATIVE); Cannabinoid Screen Urine NEGATIVE (NEGATIVE); Cocaine Screen Urine NEGATIVE (NEGATIVE); Methadone Screen Urine NEGATIVE (NEGATIVE); Methamphetamines Screen Urine NEGATIVE (NEGATIVE); Opiate Screen Urine NEGATIVE (NEGATIVE); Oxycodone Screen Urine NEGATIVE (NEGATIVE); Phencyclidine Screen Urine NEGATIVE (NEGATIVE); Tricyclic Antidepressant Urine NEGATIVE (NEGATIVE)
[2024-06-25 15:06] LABS: Estimated Average Glucose 94 mg/dL; Glycohemoglobin A1C 4.9 % (4.5-6.2)
[2024-06-25 15:29] VITALS: BP 131/88; PULSE 86
[2024-06-26 06:10] LABS: HBsAg Screen Negative (Negative); HCV Ab Non Reactive (Non Reactive); HIV Ab/p24 Ag Screen Non Reactive (Non Reactive); Rubella Antibodies, IgG 3.47 index (Immune >0.99)
[2024-06-26 13:10] LABS: Rapid Plasma Reagin, Quant Non Reactive titer (NonRea<1:1)
== END 2024-06-25 15:55 | disposition home or self-care (01) ==
LOC: LAB 14:10 → FBC 15:21
PROVIDERS: Visit Provider Obstetrics & Gynecology
DX: Z36.89 Encounter for other specified antenatal screening (principal); Z3A.37 37 weeks gestation of pregnancy; N92.6 Irregular menstruation, unspecified
CPT/HCPCS: 36415; 76805; 76817; 76818; 80307; 83036; 85025; 86592; 86762; 86803; 86850; 86900; 86901; 87086; 87340; 87389

== ENCOUNTER 2024-07-09 10:58 | Inpatient (IN) | payer OTHER, SELFPAY ==
[2024-07-09] VITALS (11 sets, daily range): BP systolic 113–149; BP diastolic 62–90; PULSE 70–157; TEMP 36.6
--- OUTSIDE RECORDS SUMMARY | 2024-07-09 11:07 | XMS_ITS | CCD ---
Author Organization [facility] Care Team Providers Care Denial Resolution Specialist Name Role Phone YAN ., DR KHALIL Admitting Unavailable YAN ., DR KHALIL Attending Unavailable REQUEST, DR CENTENO LISTED Primary Care Unavaila ble YAN ., DR KHALIL Consulting Unavailable Zieber, Consulting Unavailable YAN ., DR KHALIL Attending Unavailable REQUEST, DR CENTENO LISTED Primary Care Unavaila ble YAN ., DR KHALIL Admitting Unavailable YAN ., DR KHALIL Admitting Unavailable REQUEST, DR NONE LISTED Primary Care Unavaila ble YAN ., DR KHALIL Attending Unavailable YAN ., DR KHALIL Consulting Unavailable ZieberSteevn Consulting Unavailable YAN ., DR KHALIL Procedure Practitioner Unavail able KARASIK ., DR MAYNARD Consulting Unavailabl e YAN ., DR KHALIL Admitting Unavailable REQUEST, DR CENTENO LISTED Primary Care Unavaila ble YAN ., DR KHALIL Attending Unavailable YAN ., DR KHALIL Consulting Unavailable YAN ., DR KHALIL Admitting Unavailable YAN ., DR KHALIL Attending Unavailable REQUEST, DR CENTENO LISTED Primary Care Unavaila ble WEST, DR DAGMAR Dennis Consulting Unavailable YAN ., DR KHALIL Admitting Unavailable REQUEST, DR CENTENO LISTED Primary Care Unavaila ble YAN ., DR KHALIL Attending Unavailable YAN ., DR KHALIL Consulting Unavailable YAN ., DR KHALIL Admitting Unavailable REQUEST, NONE LISTED Primary Care Unavaila ble YAN ., DR KHALIL Attending Unavailable ZEINAB ., VENITA Consulting Unavailable REQUEST, NONE LISTED Primary Care Unavaila ble ZEINAB ., VENITA Admitting Unavailable ZEINAB ., VENITA Attending Unavailable YAN ., DR KHALIL Admitting Unavailable WEST, DR DAGMAR Dennis Consulting Unavailable REQUEST, DR NONE LISTED Primary Care Unavaila ble YAN ., DR KHALIL Attending Unavailable YAN ., DR KHALIL Consulting Unavailable [facility] Primary Care Provider DO Mikel Blount Emergency Provider Trey aiken [facility] Primary Care Provider DO Channing Riley Emergency Provider Mikel Blount Attending Unavailable [facility] Primary Care UnavailMikel Mendoza Admitting Unavailable [facility] Primary Care Unavaila Channing Niño Admitting Unavailable Channing Riley Attending Unavailable Remi Heredia DO Unavailable REMI HEREDIA Attending Unavailable REMI HEREDIA Attending Unavailable REMI HEREDIA Attending Unavailable Allergies Allergy Classification Reported Allergen(s) Allergy Type Date of Onset Reaction(s) Facility (2 sources) diphenhydrAMINE Drug Allergy 10-02-19 20 [facility] Repository (2 sources) Penicillin Drug Allergy 10-02-19 10 [facility] Repository (6 sources) Amoxicillin; Translations: [amoxicillin] Drug Allergy 08-28-[address] [facility] (6 sources) diphenhydrAMINE; Translations: [diphenhydramine] Drug Allergy 08-28-[address] [facility] (6 sources) Penicillins; Translations: [Penicillins] Allergy to substance 08-28-20 [address] [facility] (3 sources) Penicillin G Drug Allergy 05-15-20 24 Unknown [facility] Medications Current Medications Medication Drug Class(es) Dates Sig (Normalized) Sig (Original) cetirizine hydrochloride 10 mg oral tablet (3 sources) Histamine-1 Receptor Antagonist cetirizine (ZyrTEC ALLERGY) 10 MG tablet 1 (one) time each day at the same time Active fluticasone propionate 0.05 mg/actuat metered dose nasal spray (4 sources) Corticosteroid Start: 01-05-2024 fluticasone (Flonase) 50 MCG/ACT nasal spray Twice daily 01/05/2024 Active Start: 01-05-2024 take 1 spray(s) nasa l route twice daily Fluticasone Propionate (24 Hour Allergy Relief) 50 mcg/actuation spray,suspension Active 1 SPRAY INTRANASAL Twice daily January 05, 2024 12:00am administer into each nostril magnesium oxide 400 mg oral tablet (3 sources) magnesium oxide (Mag-Ox) 400 MG tablet 1 (one) time each day at the same time Active ondansetron 4 mg disintegrating oral tablet (3 sources) Serotonin-3 Receptor Antagonist take 1 tablet by mouth every six hours ondansetron ODT (Zofran-ODT) 4 MG disintegrating tablet 1 tablet on the tongue and allow to dissolve Orally 6 hours Active MV & Min w/FA-DHA ( Gummies) 0.18-25 MG chewable tablet (3 sources) MV & Mi n w/FA-DHA ( Gummies) 0.18-25 MG chewable tablet as directed Orally Active Completed/Discontinued Medications Medication Drug Class(es) Dates Sig (Normalized) Sig (Original) acetaminophen 325 mg oral tablet (2 sources) Start: 10-03-2017 End: 11-25-2018 Acetaminophen (Tylenol) 325 mg Tablet Discontinued 500 MG PO Q8H October 03, 2017 1:00am November 25, 2018 1:31am [id number] 200 actuat albuterol 0.09 mg/actuat metered dose [...] 06, 2019 12:00am December 07, 2019 12:40pm Prenat.Vits,Felipe,Upz-Xjyi-Llh ic (2 sources) Start: 05-30-2020 End: 03-31-2021 take 1 tablet by mouth once daily Prenat.Vits,Felipe,Frr-Ctyc-Tgynl Discontinued 1 TAB PO Daily 60 May 30, 2020 12:00am March 31, 2021 6:01pm Start: 05-30-2020 End: 03-31-2021 take 1 tablet by mouth once daily Prenat.Vits,Felipe,Gfp-Dngf-Zrocz Discontin ued 1 TAB PO Daily 60 [...] 10-22-2022 Episodic Other and delivery including normal (5 sources) Single live ; Translations: [] Onset: [...] [WEEKS GESTATION NOT SPEC] Onset: 11-01-2022 Episodic Residual codes; unclassified (2 sources) Gestation period, 38 weeks; Translations: [38 weeks gestation of ] 07-02-2024 Episodic Sprains and strains (4 sources) Hand [...] Results Test Name Value Interpretation Reference Range Facility Urinalysis macro (dipstick) panel (U)on 07-02-2024 Bilirubin, UA Negative Negative - 4(70) +++ mg/dL [facility] Blood, UA Negative Negative - 50 Kirk/mcL [facility] Clarity, UA Clear [facility] re Color, UA [facility] Glucose, UA Negative Negative - 1999(110) ++++ mg/dL [facility] Interpretation and review of laboratory results Normal [facility] Ketones, UA Negative Negative - 160(16) ++++ mg/dL [facility] Leukocytes, UA Negative Negative - 500+++ [place]/mcL [facility] Nitrite, UA Negative Negative - Positive [facility] pH, UA 6.5 5 - 9 [facility] Protein, UA Negative Negative - 1999(20) ++++ mg/dL [facility] Spec Grav, UA 1.020 1 - 1.03 [facility] Urobilinogen, UA 0.2 0.2 - 12 mg/dL [facility] AUTO DIFFon 11-15-2022 BASO # 0.0 103/ul Normal 0.0-0.1 [facility] Comment on above: Performed By: #### C BC #### [facility] [address] [address] [address] Marshal Diaz Basophils/100 WBC (Bld) 0.3 % Normal 0.2-2.0 [facility] Comment on above: Performed By: #### C BC #### [facility] [address] [address] [address] Marshal Diaz EO # 0.1 103/ul Normal 0.0-0.7 [facility] Comment on above: Performed By: #### C BC #### [facility] [address] [address] [address] Marshal Diaz Eosinophils/100 WBC (Bld) 1.4 % Normal 0.9-7.0 [facility] Comment on above: Performed By: #### C BC #### [facility] [address] [address] [address] Marshal Diaz Erythrocyte distribution width (RBC) [Ratio] 24.2 % Critically high 11.0-15.0 [facility] Comment on above: Performed By: #### C BC #### [facility] [address] [address] [address] Marshal Diaz Hematocrit (Bld) [Volume fraction] 31.7 % Critically low 36.0-48.0 [facility] Comment on above: Performed By: #### C BC #### [facility] [address] [address] [address] Marshal Diaz Hemoglobin (Bld) [Mass/Vol] 10.1 g/dL Critically low 12.0-16.0 [facility] Comment on above: Performed By: #### C BC #### [facility] [address] [address] [address] Marshal Diaz IG # 0.05 10e3/ul Critically high 0.00-0.03 [facility] Comment on above: Performed By: #### C BC #### [facility] [address] [place] [address] Dr. Marshal Diaz IG % 0.7 % Critically high 0.0-0.5 [facility] Comment on above: Performed By: #### C BC #### [facility] [address] [place] [address] Dr. Marshal Diaz LYMPH # 2.3 103/ul Normal 1.2-3.8 [facility] Comment on above: Performed By: #### C BC #### [facility] [address] [place] [address] Dr. Marshal Diaz Lymphocytes/100 WBC (Bld) 30.0 % Normal 20.5-60.0 [facility] Comment on above: Performed By: #### C BC #### [facility] [address] [place] [address] Dr. Marshal Diaz MANUAL DIFF REQ NO Normal [facility] Comment on above: Performed By: #### C BC #### [facility] [address] [place] [address] Dr. Marshal iDaz MCH (RBC) [Entitic mass] 25.7 pg Critically low 26.7-34.0 [facility] Comment on above: Performed By: #### C BC #### [facility] [address] [place] [address] Dr. Marshal Diaz MCHC (RBC) [Mass/Vol] 31.9 g/dL Normal 29.9-35.2 [facility] Comment on above: Performed By: #### C BC #### [facility] [address] [place] [address] Dr. Marshal Diaz MCV (RBC) [Entitic vol] 80.7 fL Critically low 81.0-99.0 [facility] Comment on above: Performed By: #### C BC #### [facility] [address] [place] [address] Dr. Marshal Diaz MONO # 0.6 103/ul Normal 0.3-0.8 [facility] Comment on above: Performed By: #### C BC #### [facility] [address] [place] [address] Dr. Marshal Diaz Monocytes/100 WBC (Bld) 8.4 % Normal 1.7-12.0 [facility] Comment on above: Performed By: #### C BC #### [facility] [address] [place] [address] Dr. Marshal Diaz NEUT # 4.5 103/ul Normal 1.4-6.5 [facility] Comment on above: Performed By: #### C BC #### [facility] [address] [place] [address] Dr. Marshal Diaz Neutrophils/100 WBC (Bld) 59.2 % Normal 43.0-75.0 [facility] Comment on above: Performed By: #### C BC #### [facility] [address] [place] [address] Dr. Marshal Diaz Platelet mean volume (Bld) [Entitic vol] 10.1 fL Normal 9.5-13.5 [facility] Comment on above: Performed By: #### C BC #### [facility] [address] [place] [address] Dr. Marshal Diaz PLT 254 103/ul Normal 150-450 [facility] Comment on above: Performed By: #### C BC #### [facility] [address] [place] [address] Dr. Marshal Diaz RBC 3.93 106/ul Critically low 4.20-5.40 [facility] Comment on above: Performed By: #### C BC #### [facility] [address] [place] [address] Dr. Marshal Diaz WBC 7.6 103/ul Normal 4.0-11.0 [facility] Comment on above: Performed By: #### C BC #### [facility] [address] [place] [address] Dr. Marshal Diaz CBC AUTO DIFFon 11-14-2022 BASO # 0.0 103/ul Normal 0.0-0.1 [facility] Comment on above: Performed By: #### C BC #### [facility] [address] [address] [address] Marshal Diaz Basophils/100 WBC (Bld) 0.3 % Normal 0.2-2.0 [facility] Comment on above: Performed By: #### C BC #### [facility] [address] [address] [address] Marshal Diaz EO # 0.0 103/ul Normal 0.0-0.7 [facility] Comment on above: Performed By: #### C BC #### [facility] [address] [place] [address] Dr. Marshal Diaz Eosinophils/100 WBC (Bld) 0.6 % Critically low 0.9-7.0 [facility] Comment on above: Performed By: #### C BC #### [facility] [address] [place] [address] Dr. Marshal Diaz Erythrocyte distribution width (RBC) [Ratio] 24.0 % Critically high 11.0-15.0 [facility] Comment on above: Performed By: #### C BC #### [facility] [address] [place] [address] Dr. Marshal Diaz Hematocrit (Bld) [Volume fraction] 33.3 % Critically low 36.0-48.0 [facility] Comment on above: Performed By: #### C BC #### [facility] [address] [place] [address] Dr. Marshal Diaz Hemoglobin (Bld) [Mass/Vol] 10.9 g/dL Critically low 12.0-16.0 [facility] Comment on above: Performed By: #### C BC #### [facility] [address] [place] [address] Dr. Marshal Diaz IG # 0.04 10e3/ul Critically high 0.00-0.03 [facility] Comment on above: Performed By: #### C BC #### [facility] [address] [place] [address] Dr. Marshal Diaz IG % 0.6 % Critically high 0.0-0.5 [facility] Comment on above: Performed By: #### C BC #### [facility] [address] [address] [address] Marshal Diaz LYMPH # 1.4 103/ul Normal 1.2-3.8 [facility] Comment on above: Performed By: #### C BC #### [facility] [address] [address] [address] Marshal Diaz Lymphocytes/100 WBC (Bld) 20.3 % Critically low 20.5-60.0 [facility] Comment on above: Performed By: #### C BC #### [facility] [address] [place] [address] Dr. Marshal Diaz MANUAL DIFF REQ NO Normal [facility] Comment on above: Performed By: #### C BC #### [facility] [address] [place] [address] Dr. Marshal Diaz MCH (RBC) [Entitic mass] 26.0 pg Critically low 26.7-34.0 [facility] Comment on above: Performed By: #### C BC #### [facility] [address] [place] [address] Dr. Marshal Diaz MCHC (RBC) [Mass/Vol] 32.7 g/dL Normal 29.9-35.2 [facility] Comment on above: Performed By: #### C BC #### [facility] [address] [place] [address] Dr. Marshal Diaz MCV (RBC) [Entitic vol] 79.3 fL Critically low 81.0-99.0 [facility] Comment on above: Performed By: #### C BC #### [facility] [address] [place] [address] Dr. Marshal Diaz MONO # 0.5 103/ul Normal 0.3-0.8 [facility] Comment on above: Performed By: #### C BC #### [facility] [address] [place] [address] Dr. Marshal Diaz Monocytes/100 WBC (Bld) 7.0 % Normal 1.7-12.0 [facility] Comment on above: Performed By: #### C BC #### [facility] [address] [place] [address] Dr. Marshal Diaz NEUT # 5.0 103/ul Normal 1.4-6.5 [facility] Comment on above: Performed By: #### C BC #### [facility] [address] [place] [address] Dr. Marshal Diaz Neutrophils/100 WBC (Bld) 71.2 % Normal 43.0-75.0 [facility] Comment on above: Performed By: #### C BC #### [facility] [address] [place] [address] Dr. Marshal Diaz Platelet mean volume (Bld) [Entitic vol] 10.0 fL Normal 9.5-13.5 [facility] Comment on above: Performed By: #### C BC #### [facility] [address] [place] [address] Dr. Marshal Diaz PLT 242 103/ul Normal 150-450 [facility] Comment on above: Performed By: #### C BC #### [facility] [address] [place] [address] Dr. Marshal Diaz RBC 4.20 106/ul Normal 4.20-5.40 [facility] Comment on above: Performed By: #### C BC #### [facility] [address] [place] [address] Dr. Marshal Diaz WBC 7.0 103/ul Normal 4.0-11.0 [facility] Comment on above: Performed By: #### C BC #### [facility] [address] [place] [address] Dr. Marshal Diaz DRUG SCREEN RAPID (URINE)on 11-14-2022 AMP Negative Normal NEGATIVE [facility] Comment on above: Performed By: #### D RUGRPD #### [facility] [address] [place] [address] Dr. Marshal Diaz BAR Negative Normal NEGATIVE [facility] Comment on above: Performed By: #### D RUGRPD #### [facility] [address] [place] [address] Dr. Marshal Diaz BUP Negative Normal NEGATIVE [facility] Comment on above: Performed By: #### D RUGRPD #### [facility] [address] [place] [address] Dr. Marshal Diaz BZO Negative Normal NEGATIVE [facility] Comment on above: Performed By: #### D RUGRPD #### [facility] [address] [place] [address] Dr. Marshal Diaz JOVANY Negative Normal NEGATIVE [facility] Comment on above: Performed By: #### D RUGRPD #### [facility] [address] [place] [address] Dr. Marshal Diaz CUT-OFFS SEE BELOW Normal [facility] Comment on above: Result Comment: AMP (Amphetamine): 500ng/mL, BAR (Barbituates): 200 ng/mL, BZO (Benzodiazepines): 150 ng/mL, BUP (Buprenorphine): 10 ng/mL, JOVANY (Cocaine): 150 ng/mL, mAMP (Methamphetamine): 500 ng/mL, MTD (Methadone): 200 ng/mL, OPI (Opiates): 100 ng/mL, OXY (Oxycodone): 100 ng/mL, PCP (Phencyclidine): 25 ng/mL, PPX (Propoxyphene): 300 ng/mL, THC (Cannabinoids): 50 ng/mL, TCA (Trycyclic Antidepressants): 300 ng/mL Performed By: #### D RUGRPD #### [facility] [address] [place] [address] Dr. Marshal Diaz DRUG CUT HEADER DRUG CLASS TEST SYSTEM CUT-OFF CONCENTRATIONS ARE FOLLOWS: Normal [facility] Comment on above: Performed By: #### D RUGRPD #### [facility] [address] [place] [address] Dr. Marshal Diaz mAMP Negative Normal NEGATIVE [facility] Comment on above: Performed By: #### D RUGRPD #### [facility] [address] [place] [address] Dr. Marshal Diaz MTD Negative Normal NEGATIVE [facility] Comment on above: Performed By: #### D RUGRPD #### [facility] [address] [place] [address] Dr. Marshal Diaz OPI Negative Normal NEGATIVE [facility] Comment on above: Performed By: #### D RUGRPD #### [facility] [address] [address] [address] Marshal Diaz OXY Negative Normal NEGATIVE [facility] Comment on above: Performed By: #### D RUGRPD #### [facility] [address] [address] [address] Marshal Diaz PCP Negative Normal NEGATIVE [facility] Comment on above: Performed By: #### D RUGRPD #### [facility] [address] [address] [address] Marshal Diaz PPX Negative Normal NEGATIVE [facility] Comment on above: Performed By: #### D RUGRPD #### [facility] [address] [place] [address] Dr. Marshal Diaz TCA Negative Normal NEGATIVE [facility] Comment on above: Performed By: #### D RUGRPD #### [facility] [address] [address] [address] Marshal Diaz THC Negative Normal NEGATIVE [facility] Comment on above: Performed By: #### D RUGRPD #### [facility] [address] [address] [address] Marshal Diaz TYPE AND SCREENon 11-14-2022 TYPE AND SCREEN Negative Normal [facility] Comment on above: Performed By: #### T NS #### [facility] [address] [place] [address] Dr. Marshal Diaz GROUP B STREP CULTUREon [...] S F Tetracycline >=16 R F Normal [facility] Comment on above: Performed By: #### G BSCX #### [facility] [address] [address] [address] Marshal Diaz CHLAMYDIA/GONOCOCCUS HANNAH ( AB/URINE/PAPon 10-21-2022 Chlamydia trachomatis, HANNAH Negative Normal Negative [facility] Comment on above: Performed By: #### C T/NGNA #### [facility] [address] [place] [address] Dr. Marshal Diaz Neisseria gonorrhoeae, HANNAH Negative Normal Negative [facility] Comment on above: Performed By: #### C T/NGNA #### [facility] [address] [place] [address] Dr. Marshal Diaz VAGINITIS/VAGINOSIS DNA PROB Doroteo 10-20-2022 Joanne species Positive Abnormal Negative [facility] Comment on above: Performed By: #### V AGINT #### [facility] [address] [place] [address] Dr. Marshal Diaz Gardnerella vaginalis Positive Abnormal Negative [facility] Comment on above: Performed By: #### V AGINT #### [facility] [address] [place] [address] Dr. Marshal Diaz Trichomonas vaginalis Negative Normal Negative [facility] Comment on above: Performed By: #### V AGINT #### [facility] [address] [place] [address] Dr. Marshal Diaz US PREG GROWTHon 10-18-2022 [...] by: DAGMAR PARRA Date: 2022-10-18 16:21 Normal [facility] US PREG INCOMPLETE ANATOMYon 10-11-2022 US PREG INCOMPLETE ANATOMY EXAMINATION: US PREG INCOMPLETE ANATOMY HISTORY: screening COMPARISON: Ultrasound anatomy 07/05/2022 FINDINGS: Heart rate: 146 bpm Presentation: Cephalic Anatomy: Spine adequately visualized. GA: 35 weeks 3 days UMANG: 11/12/2022 IMPRESSION: 1. Single live intrauterine . 2. Adequate visualization of the spine without appreciable abnormality. Electronically authenticated by: STEVEN DOWNEY Date: 2022-10-11 10:38 Normal [facility] US PREG ANATOMY SINGLEon US PREG ANATOMY [...] STEVEN DOWNEY Date: 2022-07-05 20:47 Normal [facility] US PREG TVon 04-15-2022 US PREG [...] DAGMAR PARRA Date: 2022-04-15 07:36 Normal [facility] Vital Signs Date Time Vital Sign Value Performing Clinician Facility 07-02-2024 13:47-0400 Body mass index (BMI) [Ratio] 38.37 kg/m2 [employer] Work Phone: [facility] 07-02-2024 13:47-0400 Body weight 111.13 kg [employer] Work Phone: [facility] 07-02-2024 13:47-0400 Diastolic blood pressure 80 mm[Hg] [employer] Work Phone: [facility] 07-02-2024 13:47-0400 Systolic blood pressure 124 mm[Hg] [employer] Work Phone: [facility] 01-05-2024 05:41-0400 Body height 172.72 cm [facility] Work Phone: [facility] 01-05-2024 05:41-0400 Body temperature 97.9 [degF] [facility] Work Phone: [facility] 01-05-2024 05:41-0400 Body weight 112 kg [facility] Work Phone: [facility] 01-05-2024 05:41-0400 Diastolic blood pressure 107 mm[Hg] [facility] Work Phone: [facility] 01-05-2024 05:41-0400 Heart rate 86 /min [facility] Work Phone: [facility] 01-05-2024 05:41-0400 Respiratory rate 18 /min [facility] Work Phone: [facility] 01-05-2024 05:41-0400 SaO2% (BldA) [Mass fraction] 99 % [facility] Work Phone: [facility] 01-05-2024 05:41-0400 Systolic blood pressure 160 mm[Hg] [facility] Work Phone: [facility] 08-28-2023 01:16-0500 Body temperature 98.1 [degF] [facility] Work Phone: [facility] 08-28-2023 01:16-0500 Diastolic blood pressure 82 mm[Hg] [facility] Work Phone: [facility] 08-28-2023 01:16-0500 Heart rate 71 /min [facility] Work Phone: [facility] 08-28-2023 01:16-0500 Respiratory rate 18 /min [facility] Work Phone: [facility] 08-28-2023 01:16-0500 SaO2% (BldA) [Mass fraction] 100 % [facility] Work Phone: [facility] 08-28-2023 01:16-0500 Systolic blood pressure 126 mm[Hg] [facility] Work Phone: [facility] 08-28-2023 01:15-0500 Body height 170.18 cm [facility] [employer] Work Phone: [facility] 08-28-2023 01:15050 Body weight 113.[address] [facility], [place]) Work Phone: [facility] Encounters Encounter Date Encounter Type Care Provider Facility Start: 07-02-2024 End: 07-02-2024 Bamboo flowsheet Remi Yan DO Work Phone: [facility] Start: 07-02-2024 End: 07-02-2024 Bamboo flowsheet Remi Yan DO Work Phone: [facility] Start: 07-02-2024 End: 07-02-2024 Office outpatient visit 15 minutes Remi Yan DO Work Phone: [facility] Comment on above: Third trimester preg carmen; 38 weeks gestation of Start: 07-02-2024 End: 07-02-2024 ambulatory REMI YAN Not Available Start: 2024 End: 2024 ambulatory REMI YAN Not Available Start: 06-18-2024 End: 06-18-2024 ambulatory REMI YAN Not Available Start: 06-13-2024 End: 06-13-2024 ambulatory REMI YAN Not Available Start: 01-05-2024 End: 01-05-2024 Emergency department patient visit Services [facility], [place] Facility:[facility] Start: 01-05-2024 End: 01-05-2024 Emergency department patient visit Services [facility] [place] Work Phone: [facility] Work Phone: Start: 08-28-2023 End: 08-28-2023 Emergency department patient visit Mikel Blount Facility:[facility] Start: 08-28-2023 End: 08-28-2023 Emergency department patient visit Services [facility] [place] Work Phone: [facility] Work Phone: Start: 11-14-2022 End: 11-16-2022 Evaluation and management of inpatient DR REMI HEREDIA . Facility:[facility] Start: 10-24-2022 End: 10-31-[address] DAGMAR PARRA Facility:[facility] Start: 10-18-2022 End: 10-18-2022 ambulatory VENITA ARRIOLA . Facility:[facility] Start: 10-18-2022 End: 10-19-[address] REMI HEREDIA . Facility:[facility] Start: 10-11-2022 End: 10-12-[address] REMI HEREDIA . Facility:[facility] Start: 08-18-[address] REMI HEREDIA . Facili ty:[facility] Start: 07-05-2022 End: 07-06-[address] REMI HEREDIA . Facility:[facility] Start: 06-10-[address] REMI HEREDIA . Facili ty:[facility] Start: 04-14-2022 End: 04-15-[address] REMI HEREDIA . Facility: Procedures Date Procedure Procedure Detail Performing Clinician Start: 07-02-2024 Urnls dip stick/tabl et rgnt non-auto w/o micrscp Remi Heredia DO Work Phone: Start: 11-14-2022 Delivery of Products of Conception, External Approach DR REMI HEREDIA . Plan of Treatment Date Care Activity Detail Author Start: 07-10-2024 End: 07-10-2024 Patient encounter procedure [facility] Start: 07-02-2024 End: 07-02-2024 Patient encounter procedure 07/02/2024 1:30 PM EDT Routine [facility] [address] [place] [address] Remi Heredia DO [address] [place] [address] Arrived [facility] Comment on above: Arrived Start: 06-02-2024 Influenza vaccination Influenz a Vaccine (#1) [facility] Patient Education [facility] Work Phone: Patient referral [facility] Work Phone: Payers Date Payer Category Payer Medicaid [facility] [place] [id number] 2021-Present [address] [place] [address] [id number] 1998 Unknown [id number] [id number] 93 1998 Unknown [id number] 2.16.840.1.700949.3.579.2.5 93 1998 Unknown [id number] 2.16.840.1.040506.3.579.2.5 93 1998 Unknown [id number] 2.16.840.1.988486.3.579.2.5 93 1998 Unknown [id number] 2.16.840.1.002152.3.579.2.5 93 1998 Unknown [id number] 2.16.840.1.090542.3.579.2.5 93 1998 Unknown [id number] 2.16.840.1.791276.3.579.2.5 93 1998 Unknown [id number] 2.16.840.1.120581.3.579.2.5 93 1998 Unknown [id number] 2.16.840.1.256488.3.579.2.5 93 1998 Unknown [id number] 2.16.840.1.213849.3.579.2.1 259 1998 Unknown [id number] 2.16.840.1.758952.3.579.2.1 259 1998 Unknown [id number] 2.16.840.1.090414.3.579.2.1 259 1998 Unknown [id number] 2.16.840.1.950814.3.579.2.1 259 1959 Self-pay 1959 Unknown [id number] 1959 Unknown [id number] Unknown [id number] 2.16.840.1.161745.3.579.2.5 31 Unknown [id number] 2.16.840.1.899046.3.579.2.5 31 Worker's Compensation Roberto Bravo Ind 270 [id number] Social History Date Type Detail Facility Start: 08-28-2023 End: 01-05-2024 Tobacco smoking status NHIS Never smoked tobacco (finding) [facility] Start: 2000 Sex Assigned At Female F [facility] Tobacco smoking status [facility] Tobacco smoking consumption unknown [facility] Start: 10-22-2023 [facility] Start: 1998 Sex assigned at Not on file [facility] Gender identity Not on file [facility] History of Present illness Narrative 07-02-2024 RICHARD Jimenez - 07/02/2024 1:30 PM EDT Note Date & Type Note Facility 07-02-2024 History of Presen t illness Narrative Reason for Appointment: Patient ID: Rosemarie Raya is a 24 y.o. female who presents for Routine Visit Patient presents today for Return OB appointment. MEDICATIONS Current Outpatient Medications Medication Instructions cetirizine (ZyrTEC ALLERGY) 10 MG tablet Every 24 hours fluticasone (Flonase) 50 MCG/ACT nasal spray Twice daily magnesium oxide (Mag-Ox) 400 MG tablet Every 24 hours ondansetron ODT (Zofran-ODT) 4 MG disintegrating tablet 1 tablet on the tongue and allow to dissolve Orally 6 hours MV & Min w/FA-DHA ( Gummies) 0.18-25 MG chewable tablet as directed Orally ALLERGIES Allergies Allergen Reactions Amoxicillin Unknown Diphenhydramine Unknown Other Reaction(s): Hives Penicillin G Unknown Penicillins Other Reaction(s): Unknown Reaction PROBLEMS Active Ambulatory Problems Diagnosis Date Noted No Active Ambulatory Problems Resolved Ambulatory Problems Diagnosis Date Noted No Resolved Ambulatory Problems No Additional Past Medical History HISTORY PAST MEDICAL HISTORY SOCIAL HISTORY No past medical history on file. Social History Tobacco Use Smoking status: Not on file Smokeless tobacco: Not on file Substance Use Topics Alcohol use: Not on file Drug use: Not on file FAMILY HISTORY No family history on file. SURGICAL HISTORY History reviewed. No pertinent surgical history. REVIEW OF SYSTEMS Review of Systems: Review of Systems Constitutional: Negative. HENT: Negative. Eyes: Negative. Respiratory: Negative. Cardiovascular: Negative. Gastrointestinal: Negative. Genitourinary: Negative. Musculoskeletal: Negative. Skin: Negative. Neurological: Negative. All other systems reviewed and are negative. Hematological: Negative. Endocrine: Negative. Allergic/Immunologic: Negative. OBJECTIVE Objective: Physical Exam Constitutional: Appearance: Normal appearance. She is normal weight. HENT: Head: Normocephalic. Cardiovascular: Rate and Rhythm: Normal rate. Pulses: Normal pulses. Pulmonary: Effort: Pulmonary effort is normal. Breath sounds: Normal breath sounds. Abdominal: Palpations: Abdomen is soft. Musculoskeletal: General: Normal range of motion. Neurological: General: No focal deficit present. Mental Status: She is alert and oriented to person, place, and time. Psychiatric: Mood and Affect: Mood normal. Behavior: Behavior normal. Thought Content: Thought content normal. Judgment: Judgment normal. Vitals and nursing note reviewed. Vitals: Estimated body mass index is 38.37 kg/m as calculated from the following: Height as of 11/10/22: 5' 7 . Weight as of this encounter: 245 lb. BP: 124/80 No LMP recorded. Patient is . ASSESSMENT & PLAN ICD-10-CM 1. Third trimester Z34.93 POCT urinalysis dipstick manually resulted 2. 38 weeks gestation of Z3A.38 POCT urinalysis dipstick manually resulted Return OB: Patient presents today for a routine obstetrics appointment. Patient is currently 38w2d . Patient states she is doing well but has complaints of being tired due to current . Patient has verbalizes frequent movement. labor precautions was discussed/given and patient was instructed to perform kick counts three times a day. Orders Placed This Encounter Procedures POCT urinalysis dipstick manually resulted Follow Up: Patient is to return to office in 1 week for routine OB appointment. Documented by RICHARD Jimenez on behalf of: Remi Heredia DO documented in this encounter [facility] Evaluation note Note Date & Type Note Facility Evaluation note No assessment information availa ble [facility] Work Phone: Evaluation note Note Date & Type Note Facility Evaluation note Diagnosis Third trimester state, incidental 38 weeks gestation of documented in this encounter [facility] Discharge instructions Note Date & Type Note Facility Hospital Discharge instructions Additional Instructions Take clindamycin as prescribed. Take Motrin Tylenol as needed for pain you can apply sensitive toothpaste to your tooth to help decrease sensitivity. Follow-up with a dentist for definitive management. [facility] Work Phone: Summary Purpose Family History Relationship Condition Age at Onset Recorded Date/T cheko Not Specified No pertinent family history Unknown Advance Directives Advance Directive Response Recorded Date/ Time Advance Directives No April 29 9:23pm Advance Directive Response Recorded Date/ Time Advance Directives No April 29 10:23pm Chief Complaint and Reason for Visit Chief Complaint Dental pain Chief Complaint ear ache, mouth pain Additional Source Comments INFORMATION SOURCE (unrecogn ized section and content) DATE CREATED AUTHOR 11/23/2022 [facility] DATE CREATED AUTHOR AUTHOR'S ORGANIZ ATION 01/18/2024 [facility] DATE CREATED AUTHOR AUTHOR'S ORGANIZ ATION 07/04/2024 [facility] Specialists EPIC Care Teams (unrecognized sec tion and content) Team Status: Active Member Role Status Dates Services [facility] Primary Care Provider Active Team Status: Inactive Member Role Status Dates Services [facility] Primary Care Provider Active Mikel Blount DO Emergency Provider Active Team Status: Inactive Member Role Status Dates Services [facility] Primary Care Provider Active Start: January 05, 2024 End: January 05, 2024 Channing Riley DO Emergency Provider Active St art: January 05, 2024 End: January 05, 2024 Denial Resolution Specialist Relationship Specialty Start Date End Date Remi Heredia DO [address] [place] [address] PCP - [facility] 01/01/24 Denial Resolution Specialist Relationship Specialty Start Date End Date Remi Heredia DO [address] [place] [address] [place] [address] PCP - [facility] 01/01/24 Goals (unrecognized section and content) Goals may be documented in a n alternate sectionGoals may be documented in an alternate section Reason for Visit (unrecogniz ed section and content) Reason Comments Routine Visit FOR RECORDS PERTAINING TO PATIENTS WHO ARE [...] BE BASED ON THE PRIMARY CLINICAL RECORDS. [facility] [employer] [facility]. provides no warranty or guarantee of the accuracy or completeness of information in this document.
[2024-07-09] MEDS: 0.9 % SODIUM CHLORIDE 1,000 ML 125 ML IV (11:34)
[2024-07-09] MEDS: CLINDAMYCIN PHOSPHATE/D5W 900 MG/50 ML PREMIX 100 MG IV (11:38)
--- NOTE | 2024-07-09 11:51 | PM.OBHP ---
OB - H&P: HPI History of Present Illness Chief complaint: LABOR Date of last menstrual period: 07/14/24 UMANG Gestational age based on last menstrual period: 39.1 Narrative: MINIMAL CARE. PRESENTED TO MATERNITY IN ACTIVE LABOR. SROM AN HOUR LATER. GBS POSITIVE. RECEIVING CLINDAMYCIN ALLERGIES TO PCN. History of Present care: limited care (seen at 35 weeks) Abnormal ultrasound findings: unknown Medical complications OB: none Review of Systems ROS Status of ROS: 10 or more systems reviewed and unremarkable except as noted in history and below [facility] Medical History (Updated 07/09/24 @ 12:25 by Maeve Freeman MD) (spontaneous vaginal delivery) ?O80 - Encounter for full-term uncomplicated delivery (ICD-10) Uterine contractions ?O47.9 - False labor, unspecified (ICD-10) Meds Home Medications and Allergies Allergies Allergy/AdvReac Type Severity Reaction Status Date / Time amoxicillin Allergy Intermediate Unknown Verified 06/25/24 15:32 diphenhydramine Allergy Intermediate Hives Verified 06/25/24 15:32 [From Benadryl] penicillin V Allergy Intermediate Unknown Verified 06/25/24 15:35 Exam Narrative Exam Narrative: IN ACTIVE LABOR, WITHOUT EPIDURAL Constitutional Vital Signs, click to edit/add: Last Vital Signs Pulse 82 07/09/24 11:31 BP 132/88 07/09/24 11:31 Common normals: oriented x3, no limitations, healthy appearing, alert and well nourished General appearance: cooperative Nutritional appearance: overweight Orientation/consciousness: Yes oriented to person, Yes oriented to place and Yes oriented to time HENMT Common normals: normocephalic and head/scalp atraumatic Eye Common normals: PERRL Pupil: accommodation reflex normal Neck & C-Spine Common normals: full ROM and supple Respiratory Common normals: normal respiratory effort Auscultation: clear to auscultation bilaterally Cardio Common normals: regular rate and regular rhythm GI Common normals: Normal to inspection, nondistended, normoactive bowel sounds present and soft to palpation (WHEN NOT GABE) Common normals: no CVA tenderness Back & Pelvis Common normals: no thoracic nor lumbar tenderness Extremity Common normals: normal to inspection, full ROM and no calf tenderness Neuro Common normals: oriented x3, CN's II-XII intact bilaterally, moves all extremities, no focal motor deficits and no sensory deficits noted Motor exam: strength 5/5 throughout Psych Common normals: mental status grossly normal, thought process normal, cooperative and affect normal OB - A/P Assessment and Plan (1) Uterine contractions: Assessment and Plan: IN ACTIVE LABOR, 8 CM, BULDGING BAG WHICH SUBSEQUENTLY BROKE WITH CLEAR FLUID, RECEIVING ONE DOSE OF CLINDAMYCIN FOR GBS + AND ALLERGY TO PCN, FHR CAT I, REGULAR STRONG CONTRACTIONS (2) (spontaneous vaginal delivery): Assessment and Plan: FIRST DEGREE LAC, ONE STITCH OF 3-0 VICRYL, BABY BOY CRYING ON DELIVERY, PLACENTA DELIVERED SPONTANEOUSLY INTACT AND SENT FOR LATE SCREEN AND SGA, ROUTINE CARE Plan ABOVE
[2024-07-09] MEDS: OXYTOCIN/0.9 % SODIUM CHLORIDE 20 UNITS/1,000 ML PLAST..BAG 125 UNIT IV (12:05)
[2024-07-09 12:06] LABS: Hematocrit 34.1 % (36.0-48.0); Hemoglobin 11.7 g/dL (12.0-16.0); Mean Corpuscular HGB Conc 34.3 g/dL (29.9-35.2); Mean Corpuscular Hemoglobin 27.3 pg (26.7-34.0); Mean Corpuscular Volume 79.5 fL (81.0-99.0); Mean Platelet Volume 11.1 fL (9.5-13.5); Platelet Count 349 10^3/uL (150-450); Red Blood Count 4.29 10^6/uL (4.20-5.40); White Blood Count 8.1 10^3/uL (4.0-11.0)
--- NOTE | 2024-07-09 12:29 | PM.OBPRCVD ---
Procedure Procedure: PRESENTED TO MATERNITY IN ACTIVE LABOR. REFUSES EPIDURAL. MULTIP, . WATER BROKE SPONTANEOUSLY AND CLEAR. FHR CAT I. HEAD DELIVERED IN TWO PUSHES, CRYING ON DELIVERY, NO NUCHAL CORD, CORD MILKED 30 SECONDS AND DOUBLY CUT AND CLAMPED. BABY TO MOM FOR SKIN TO SKIN. FIRST DEGREE LAC REQUIRING ONE SIMPLE 3-0 STITCH AT INTROITUS. EBL 200. PIT STARTED. TOLERATED PROCEDURE WELL. Intrapartal events: None Induction method: none Delivery monitor: external FHT and external uterine Route of delivery: Episiotomy Description: none L&D Laceration Description: periurethral - 1st degree Delivery repair: Vicryl Estimated blood loss (mL): 200 Anesthesia type: None Disposition: floor Complications: NONE Narrative: SEE ABOVE Delivery date: 07/09/24 Gender: male presentation: vertex Placental delivery description: Spontaneous cord description comment: WNL
--- OUTSIDE RECORDS SUMMARY | 2024-07-09 13:46 | XMS_ITS | CCD ---
Author Organization [facility] Care Team Providers Care Warehouse Receiving Clerk Name Role Phone YAN ., DR KHALIL [...] Unavailable YAN ., DR KHALIL Consulting Unavailable ZieberSteven Consulting Unavailable YAN ., DR KHALIL Procedure [...] Unavailable YAN ., DR KHALIL Consulting Unavailable [facility] Primary Care Provider [phone]( [phone] DO Mikel Blount Emergency Provider Trey aiken [facility] Services Primary Care Provider [phone]( [phone] DO Channing Riley Emergency Provider Mikel Blount Attending Unavailable [facility] Primary Care UnavailMikel Mendoza Admitting Unavailable [facility] Primary Care Unavaila Channing Niño Admitting Unavailable Channing Riley Attending Unavailable Remi Heredia DO Unavailable REMI HEREDIA Attending Unavailable REMI HEREDIA Attending Unavailable REMI HEREDIA Attending Unavailable Allergies Allergy Classification Reported Allergen(s) Allergy Type Date of Onset Reaction(s) Facility (2 sources) diphenhydrAMINE Drug Allergy 10-02-19 20 [facility] (2 sources) Penicillin Drug Allergy 10-02-19 10 [facility] (6 sources) Amoxicillin; Translations: [amoxicillin] Drug Allergy 08-28-20 23 Unknown [facility] (6 sources) diphenhydrAMINE; Translations: [diphenhydramine] Drug Allergy 08-28-20 23 Unknown [facility] (6 sources) Penicillins; Translations: [Penicillins] Allergy to substance 08-28-20 23 Unknown Reaction [facility] (3 sources) Penicillin G Drug Allergy 05-15-20 [...] 03, 2017 1:00am November 25, 2018 1:31am [id number] 200 actuat albuterol 0.09 mg/actuat metered dose [...] 06, 2019 12:00am December 07, 2019 12:40pm Prenat.Vits,Felipe,Vvm-Kvoj-Cwv ic (2 sources) Start: 05-30-2020 End: 03-31-2021 take 1 tablet by mouth once daily Prenat.Vits,Felipe,Wzc-Bbfv-Vtszi Discontinued 1 TAB PO Daily 60 May 30, 2020 12:00am March 31, 2021 6:01pm Start: 05-30-2020 End: 03-31-2021 take 1 tablet by mouth once daily Prenat.Vits,Felipe,Yam-Heov-Uvkvk Discontin ued 1 TAB PO Daily 60 [...] UA Negative Negative - 4(70) +++ mg/dL [facility] Blood, UA Negative Negative - 50 Kirk/mcL [facility] Clarity, UA Clear [facility] re Color, UA Yellow [facility] Glucose, UA Negative Negative - 1999(110) ++++ mg/dL [facility] Interpretation and review of laboratory results Normal [facility] Ketones, UA Negative Negative - 160(16) ++++ mg/dL [facility] Leukocytes, UA Negative Negative - 500+++ [place]/mcL [facility] Nitrite, UA Negative Negative - Positive [facility] pH, UA 6.5 5 - 9 [facility] Protein, UA Negative Negative - 1999(20) ++++ mg/dL [facility] Spec Grav, UA 1.020 1 - 1.03 [facility] Urobilinogen, UA 0.2 0.2 - 12 mg/dL [facility] CBC AUTO DIFFon 11-15-2022 BASO # 0.0 103/ul Normal 0.0-0.1 [facility] Comment on above: Performed By: #### C BC #### [facility] [address] [address] [address] Marshal Diaz Basophils/100 WBC (Bld) 0.3 % Normal 0.2-2.0 [facility] Comment on above: Performed By: #### C BC #### [facility] [address] [address] [address] Marshal Diaz EO # 0.1 103/ul Normal 0.0-0.7 [facility] Comment on above: Performed By: #### C BC #### [facility] [address] [address] [address] Marshal Diaz Eosinophils/100 WBC (Bld) 1.4 % Normal 0.9-7.0 [facility] Comment on above: Performed By: #### C BC #### [facility] [address] [address] [address] Marshal Diaz Erythrocyte distribution width (RBC) [Ratio] 24.2 % Critically high 11.0-15.0 [facility] Comment on above: Performed By: #### C BC #### [facility] [address] [address] [address] Marshal Diaz Hematocrit (Bld) [Volume fraction] 31.7 % Critically low 36.0-48.0 [facility] Comment on above: Performed By: #### C BC #### [facility] [address] [address] [address] Marshal Diaz Hemoglobin (Bld) [Mass/Vol] 10.1 g/dL Critically low 12.0-16.0 [facility] Comment on above: Performed By: #### C BC #### [facility] [address] [address] [address] Marshal Diaz IG # 0.05 10e3/ul Critically high 0.00-0.03 [facility] Comment on above: Performed By: #### C BC #### [facility] [address] [place] [address] Dr. Marshal Diaz IG % 0.7 % Critically high 0.0-0.5 [facility] Comment on above: Performed By: #### C BC #### [facility] [address] [place] [address] Dr. Marshal Diaz LYMPH # 2.3 103/ul Normal 1.2-3.8 [facility] Comment on above: Performed By: #### C BC #### [facility] [address] [place] [address] Dr. Marshal Diaz Lymphocytes/100 WBC (Bld) 30.0 % Normal 20.5-60.0 [facility] Comment on above: Performed By: #### C BC #### [facility] [address] [place] [address] Dr. Marshal Diaz MANUAL DIFF REQ NO Normal [facility] Comment on above: Performed By: #### C BC #### [facility] [address] [place] [address] Dr. Marshal Diaz MCH (RBC) [Entitic mass] 25.7 pg Critically low 26.7-34.0 [facility] Comment on above: Performed By: #### C BC #### [facility] [address] [place] [address] Dr. Marshal Diaz MCHC (RBC) [Mass/Vol] 31.9 g/dL Normal 29.9-35.2 [facility] Comment on above: Performed By: #### C BC #### [facility] [address] [place] [address] Dr. Marshal Diaz MCV (RBC) [Entitic vol] 80.7 fL Critically low 81.0-99.0 [facility] Comment on above: Performed By: #### C BC #### [facility] [address] [place] [address] Dr. Marshal Diaz MONO # 0.6 103/ul Normal 0.3-0.8 [facility] Comment on above: Performed By: #### C BC #### [facility] [address] [place] [address] Dr. Marshal Diaz Monocytes/100 WBC (Bld) 8.4 % Normal 1.7-12.0 [facility] Comment on above: Performed By: #### C BC #### [facility] [address] [place] [address] Dr. Marshal Diaz NEUT # 4.5 103/ul Normal 1.4-6.5 [facility] Comment on above: Performed By: #### C BC #### [facility] [address] [place] [address] Dr. Marshal Diaz Neutrophils/100 WBC (Bld) 59.2 % Normal 43.0-75.0 [facility] Comment on above: Performed By: #### C BC #### [facility] [address] [place] [address] Dr. Marshal Diaz Platelet mean volume (Bld) [Entitic vol] 10.1 fL Normal 9.5-13.5 [facility] Comment on above: Performed By: #### C BC #### [facility] [address] [place] [address] Dr. Marshal Diaz PLT 254 103/ul Normal 150-450 [facility] Comment on above: Performed By: #### C BC #### [facility] [address] [place] [address] Dr. Marshal Diaz RBC 3.93 106/ul Critically low 4.20-5.40 [facility] Comment on above: Performed By: #### C BC #### [facility] [address] [place] [address] Dr. Marshal Diaz WBC 7.6 103/ul Normal 4.0-11.0 [facility] Comment on above: Performed By: #### C BC #### [facility] [address] [place] [address] Dr. Marshal Diaz CBC AUTO DIFFon 11-14-2022 BASO # 0.0 103/ul Normal 0.0-0.1 [facility] Comment on above: Performed By: #### C BC #### [facility] [address] [address] [address] Marshal Diaz Basophils/100 WBC (Bld) 0.3 % Normal 0.2-2.0 [facility] Comment on above: Performed By: #### C BC #### [facility] [address] [address] [address] Marshal Diaz EO # 0.0 103/ul Normal 0.0-0.7 [facility] Comment on above: Performed By: #### C BC #### [facility] [address] [place] [address] Dr. Marshal Diaz Eosinophils/100 WBC (Bld) 0.6 % Critically low 0.9-7.0 [facility] Comment on above: Performed By: #### C BC #### [facility] [address] [place] [address] Dr. Marshal Diaz Erythrocyte distribution width (RBC) [Ratio] 24.0 % Critically high 11.0-15.0 [facility] Comment on above: Performed By: #### C BC #### [facility] [address] [place] [address] Dr. Marshal Diaz Hematocrit (Bld) [Volume fraction] 33.3 % Critically low 36.0-48.0 [facility] Comment on above: Performed By: #### C BC #### [facility] [address] [place] [address] Dr. Marshal Diaz Hemoglobin (Bld) [Mass/Vol] 10.9 g/dL Critically low 12.0-16.0 [facility] Comment on above: Performed By: #### C BC #### [facility] [address] [place] [address] Dr. Marshal Diaz IG # 0.04 10e3/ul Critically high 0.00-0.03 [facility] Comment on above: Performed By: #### C BC #### [facility] [address] [place] [address] Dr. Marshal Diaz IG % 0.6 % Critically high 0.0-0.5 [facility] Comment on above: Performed By: #### C BC #### [facility] [address] [address] [address] Marshal Diaz LYMPH # 1.4 103/ul Normal 1.2-3.8 [facility] Comment on above: Performed By: #### C BC #### [facility] [address] [address] [address] Marshal Diaz Lymphocytes/100 WBC (Bld) 20.3 % Critically low 20.5-60.0 [facility] Comment on above: Performed By: #### C BC #### [facility] [address] [place] [address] Dr. Marshal Diaz MANUAL DIFF REQ NO Normal [facility] Comment on above: Performed By: #### C BC #### [facility] [address] [place] [address] Dr. Marshal Diaz MCH (RBC) [Entitic mass] 26.0 pg Critically low 26.7-34.0 [facility] Comment on above: Performed By: #### C BC #### [facility] [address] [place] [address] Dr. Marshal Diaz MCHC (RBC) [Mass/Vol] 32.7 g/dL Normal 29.9-35.2 [facility] Comment on above: Performed By: #### C BC #### [facility] [address] [place] [address] Dr. Marshal Diaz MCV (RBC) [Entitic vol] 79.3 fL Critically low 81.0-99.0 [facility] Comment on above: Performed By: #### C BC #### [facility] [address] [place] [address] Dr. Marshal Diaz MONO # 0.5 103/ul Normal 0.3-0.8 [facility] Comment on above: Performed By: #### C BC #### [facility] [address] [place] [address] Dr. Marshal Diaz Monocytes/100 WBC (Bld) 7.0 % Normal 1.7-12.0 [facility] Comment on above: Performed By: #### C BC #### [facility] [address] [place] [address] Dr. Marshal Diaz NEUT # 5.0 103/ul Normal 1.4-6.5 [facility] Comment on above: Performed By: #### C BC #### [facility] [address] [place] [address] Dr. Marshal Diaz Neutrophils/100 WBC (Bld) 71.2 % Normal 43.0-75.0 [facility] Comment on above: Performed By: #### C BC #### [facility] [address] [place] [address] Dr. Marshal Diaz Platelet mean volume (Bld) [Entitic vol] 10.0 fL Normal 9.5-13.5 [facility] Comment on above: Performed By: #### C BC #### [facility] [address] [place] [address] Dr. Marshal Diaz PLT 242 103/ul Normal 150-450 [facility] Comment on above: Performed By: #### C BC #### [facility] [address] [place] [address] Dr. Marshal Diaz RBC 4.20 106/ul Normal 4.20-5.40 [facility] Comment on above: Performed By: #### C BC #### [facility] [address] [place] [address] Dr. Marshal Diaz WBC 7.0 103/ul Normal 4.0-11.0 [facility] Comment on above: Performed By: #### C BC #### [facility] [address] [place] [address] Dr. Marshal Diaz DRUG SCREEN RAPID (URINE)on 11-14-2022 AMP Negative Normal NEGATIVE [facility] Comment on above: Performed By: #### D RUGRPD #### [facility] [address] [place] [address] Dr. Marshal Diaz BAR Negative Normal NEGATIVE [facility] Comment on above: Performed By: #### D RUGRPD #### [facility] [address] [place] [address] Dr. Marshal Diaz BUP Negative Normal NEGATIVE [facility] Comment on above: Performed By: #### D RUGRPD #### [facility] [address] [place] [address] Dr. Marshal Diaz BZO Negative Normal NEGATIVE [facility] Comment on above: Performed By: #### D RUGRPD #### [facility] [address] [place] [address] Dr. Marshal Diaz JOVANY Negative Normal NEGATIVE [facility] Comment on above: Performed By: #### D RUGRPD #### [facility] [address] [place] [address] Dr. Marshal Diaz CUT-OFFS SEE BELOW Normal [facility] Comment on above: Result Comment: AMP [...] ng/mL Performed By: #### D RUGRPD #### [facility] [address] [place] [address] Dr. Marshal Diaz DRUG CUT HEADER DRUG CLASS TEST SYSTEM CUT-OFF CONCENTRATIONS ARE FOLLOWS: Normal [facility] Comment on above: Performed By: #### D RUGRPD #### [facility] [address] [place] [address] Dr. Marshal Diaz mAMP Negative Normal NEGATIVE [facility] Comment on above: Performed By: #### D RUGRPD #### [facility] [address] [place] [address] Dr. Marshal Diaz MTD Negative Normal NEGATIVE [facility] Comment on above: Performed By: #### D RUGRPD #### [facility] [address] [place] [address] Dr. Marshal Diaz OPI Negative Normal NEGATIVE [facility] Comment on above: Performed By: #### D RUGRPD #### [facility] [address] [address] [address] Marshal Diaz OXY Negative Normal NEGATIVE [facility] Comment on above: Performed By: #### D RUGRPD #### [facility] [address] [address] [address] Marshal Diaz PCP Negative Normal NEGATIVE [facility] Comment on above: Performed By: #### D RUGRPD #### [facility] [address] [address] [address] Marshal Diaz PPX Negative Normal NEGATIVE [facility] Comment on above: Performed By: #### D RUGRPD #### [facility] [address] [place] [address] Dr. Marshal Diaz TCA Negative Normal NEGATIVE [facility] Comment on above: Performed By: #### D RUGRPD #### [facility] [address] [address] [address] Marshal Diaz THC Negative Normal NEGATIVE [facility] Comment on above: Performed By: #### D RUGRPD #### [facility] [address] [address] [address] Marshal Diaz TYPE AND SCREENon 11-14-2022 TYPE AND SCREEN Negative Normal [facility] Comment on above: Performed By: #### T NS #### [facility] [address] [place] [address] Dr. Marshal Diaz GROUP B STREP CULTUREon [...] Tetracycline >=16 R F Normal [facility] Comment on above: Performed By: #### G BSCX #### [facility] [address] [address] [address] Marshal Diaz CHLAMYDIA/GONOCOCCUS HANNAH ( AB/URINE/PAPon 10-21-2022 Chlamydia trachomatis, HANNAH Negative Normal Negative [facility] Comment on above: Performed By: #### C T/NGNA #### [facility] [address] [place] [address] Dr. Marshal Diaz Neisseria gonorrhoeae, HANNAH Negative Normal Negative [facility] Comment on above: Performed By: #### C T/NGNA #### [facility] [address] [place] [address] Dr. Marshal Diaz VAGINITIS/VAGINOSIS DNA PROB Doroteo 10-20-2022 Joanne species Positive Abnormal Negative [facility] Comment on above: Performed By: #### V AGINT #### [facility] [address] [place] [address] Dr. Marshal Diaz Gardnerella vaginalis Positive Abnormal Negative [facility] Comment on above: Performed By: #### V AGINT #### [facility] [address] [place] [address] Dr. Marshal Diaz Trichomonas vaginalis Negative Normal Negative [facility] Comment on above: Performed By: #### V AGINT #### [facility] [address] [place] [address] Dr. Marshal Diaz US PREG GROWTHon 10-18-2022 [...] PARRA Date: 2022-10-18 16:21 Normal [facility] US PREG INCOMPLETE ANATOMYon 10-11-2022 US [...] DOWNEY Date: 2022-10-11 10:38 Normal [facility] US PREG ANATOMY SINGLEon US PREG [...] STEVEN DOWNEY Date: 2022-07-05 20:47 Normal [facility] US PREG TVon 04-15-2022 US PREG TV [...] DAGMAR PARRA Date: 2022-04-15 07:36 Normal [facility] Vital Signs Date Time Vital Sign Value Performing Clinician Facility 07-02-2024 13:47-0400 Body mass index (BMI) [Ratio] 38.37 kg/m2 [employer] Work Phone: [facility] 07-02-2024 13:47-0400 Body weight 111.13 kg [employer] Work Phone: [facility] 07-02-2024 13:47-0400 Diastolic blood pressure 80 mm[Hg] [employer] Work Phone: [facility] 07-02-2024 13:47-0400 Systolic blood pressure 124 mm[Hg] [employer] Work Phone: [facility] 01-05-2024 05:41-0400 Body height 172.72 cm [facility] Work Phone: [facility] 01-05-2024 05:41-0400 Body temperature 97.9 [degF] [facility] Work Phone: [facility] 01-05-2024 05:41-0400 Body weight 112 kg [facility] Work Phone: [facility] 01-05-2024 05:41-0400 Diastolic blood pressure 107 mm[Hg] [facility] Work Phone: [facility] 01-05-2024 05:41-0400 Heart rate 86 /min [facility] Work Phone: [facility] 01-05-2024 05:41-0400 Respiratory rate 18 /min [facility] Work Phone: [facility] 01-05-2024 05:41-0400 SaO2% (BldA) [Mass fraction] 99 % [facility] Work Phone: [facility] 01-05-2024 05:41-0400 Systolic blood pressure 160 mm[Hg] [facility] Work Phone: [facility] 08-28-2023 01:16-0500 Body temperature 98.1 [degF] [facility] Work Phone: [facility] 08-28-2023 01:16-0500 Diastolic blood pressure 82 mm[Hg] [facility] Work Phone: [facility] 08-28-2023 01:16-0500 Heart rate 71 /min [facility] Work Phone: [facility] 08-28-2023 01:16-0500 Respiratory rate 18 /min [facility] Work Phone: [facility] 08-28-2023 01:16-0500 SaO2% (BldA) [Mass fraction] 100 % [facility] Work Phone: [facility] 08-28-2023 01:16-0500 Systolic blood pressure 126 mm[Hg] [facility] Work Phone: [facility] 08-28-2023 01:15-0500 Body height 170.18 cm [facility] [employer] Work Phone: [facility] 08-28-2023 01:15050 Body weight 113.65 kg [facility] Work Phone: [facility] Encounters Encounter Date Encounter Type Care Provider [...] End: 01-05-2024 Emergency department patient visit [facility] Facility:[facility] Start: 01-05-2024 End: 01-05-2024 Emergency department patient visit [facility] Work Phone: [facility] Work Phone: Start: 08-28-2023 End: 08-28-2023 Emergency department patient visit Mikel Blount Facility:[facility] Start: 08-28-2023 End: 08-28-2023 Emergency department patient visit [facility] Work Phone: [facility] Work Phone: Start: 11-14-2022 [...] Remi Heredia DO [address] [place] [address] Arrived [facility] BCP OB Comment on above: Arrived Start: 06-02-2024 Influenza vaccination Influenz a Vaccine (#1) [facility] Patient Education [facility] Work Phone: Patient referral [facility] Work Phone: Payers Date Payer Category Payer Medicaid [facility] [place] [id number] 2021-Present [address] [place] [address] [id number] 1998 Unknown [id number] [id number] 93 1998 Unknown [id number] 2.16.840.1.404303.3.579.2.5 93 1998 Unknown [id number] 2.16.840.1.286934.3.579.2.5 93 1998 Unknown [id number] 2.16.840.1.324911.3.579.2.5 93 1998 Unknown [id number] 2.16.840.1.392406.3.579.2.5 93 1998 Unknown [id number] 2.16.840.1.074656.3.579.2.5 93 1998 Unknown [id number] 2.16.840.1.820286.3.579.2.5 93 1998 Unknown [id number] 2.16.840.1.302108.3.579.2.5 93 1998 Unknown [id number] 2.16.840.1.217872.3.579.2.5 93 1998 Unknown [id number] 2.16.840.1.478861.3.579.2.1 259 1998 Unknown [id number] 2.16.840.1.238361.3.579.2.1 259 1998 Unknown [id number] 2.16.840.1.180183.3.579.2.1 259 1998 Unknown [id number] 2.16.840.1.027529.3.579.2.1 259 1959 Self-pay 1959 Unknown [id number] 1959 Unknown [id number] Unknown [id number] 2.16.840.1.273984.3.579.2.5 31 Unknown [id number] 2.16.840.1.754388.3.579.2.5 31 Worker's Compensation Roberto Bravo Ind 270 [id number] Social History Date Type Detail Facility Start: 08-28-2023 End: 01-05-2024 Tobacco smoking status NHIS Never smoked tobacco (finding) [facility] Start: 2000 Sex Assigned At Female F [facility] Tobacco smoking status [facility] Tobacco smoking consumption unknown [facility] [...] Evaluation note No assessment information availa ble [facility] Work Phone: Evaluation note Note [...] Follow-up with a dentist for definitive management. [facility] Work Phone: Summary Purpose Family [...] CREATED AUTHOR AUTHOR'S ORGANIZ ATION 01/18/2024 [facility] DATE CREATED AUTHOR AUTHOR'S ORGANIZ ATION 07/04/2024 [facility] EPIC Care Teams (unrecognized sec tion and content) Team Status: Active Member Role Status Dates Services Family Health Primary Care Provider Active Team Status: Inactive Member Role Status Dates Services Family [facility] Primary Care Provider Active Mikel Blount DO Emergency Provider Active Team Status: Inactive Member Role Status Dates Services Family Health Primary Care Provider Active Start: January 05, 2024 End: January 05, 2024 Channing Riley DO Emergency Provider Active St art: January 05, 2024 End: January 05, 2024 Warehouse Receiving Clerk Relationship Specialty Start Date End Date Remi Heredia DO [address] [place] [address] PCP - [facility] 01/01/24 Warehouse Receiving Clerk Relationship Specialty Start Date End Date Remi Heredia DO [address] [place] [address] [place] [address] PCP - [facility] 01/01/24 Goals (unrecognized section and content) Goals [...] BE BASED ON THE PRIMARY CLINICAL RECORDS. [facility] [employer] [facility]. provides no warranty or guarantee of the accuracy or completeness of information in this document.
[2024-07-09] MEDS: IBUPROFEN 600 MG TABLET PO (15:23)
[2024-07-10 00:24] VITALS: BP 132/75; PULSE 82; TEMP 35.7
[2024-07-10] MEDS: IBUPROFEN 600 MG TABLET PO ×4 (00:24→22:59)
[2024-07-10 06:37] LABS: Basophils Percent Auto 0.5 % (0.2-2.0); Eosinophils Absolute Auto 0.1 10^3/uL (0.0-0.7); Hematocrit 28.5 % (36.0-48.0); Hemoglobin 9.4 g/dL (12.0-16.0); Immature Granulocytes Abs Auto 0.04 10^3/uL (0.00-0.03); Immature Granulocytes Pct Auto 0.5 % (0.0-0.5); Lymphocytes Absolute Auto 2.5 10^3/uL (1.2-3.8); Lymphocytes Percent Auto 31.6 % (20.5-60.0); Mean Corpuscular Hemoglobin 26.9 pg (26.7-34.0); Mean Corpuscular Volume 81.7 fL (81.0-99.0); Mean Platelet Volume 10.6 fL (9.5-13.5); Monocytes Absolute Auto 0.6 10^3/uL (0.3-0.8); Monocytes Percent Auto 7.5 % (1.7-12.0); Neutrophils Absolute Auto 4.7 10^3/uL (1.4-6.5); Neutrophils Percent Auto 58.9 % (43.0-75.0); Platelet Count 263 10^3/uL (150-450); Red Blood Count 3.49 10^6/uL (4.20-5.40); Red Cell Distribution Width 15.3 % (11.0-15.0)
[2024-07-10 09:58] VITALS: TEMP 35.7
[2024-07-10 09:59] VITALS: BP 142/88; PULSE 89; TEMP 36.2
[2024-07-10] MEDS: FERROUS SULFATE 325 MG TABLET PO (09:59)
[2024-07-10] MEDS: DOCUSATE SODIUM 100 MG CAPSULE PO ×2 (09:59→21:24)
--- NOTE | 2024-07-10 13:17 | PM.OBPN ---
OB - PN: Subj Subjective Patient comments: no complaints and flatus present status: doing well feeding status: exclusively bottle feeding Exam Narrative Exam Narrative: VOICING NO COMPLAINTS Constitutional Vital Signs, click to edit/add: Last Vital Signs Temp 97.2 F L 07/10/24 09:59 Pulse 89 07/10/24 09:59 Resp 16 07/10/24 09:59 BP 142/88 H 07/10/24 09:59 O2 Del Method Room Air 07/10/24 09:59 Documenting provider has reviewed patient's vital signs: yes Common normals: no apparent distress, oriented x3, no limitations, healthy appearing, alert and well nourished HENMT Common normals: normocephalic and head/scalp atraumatic Eye Common normals: PERRL Pupil: accommodation reflex normal Neck & C-Spine Common normals: full ROM and supple Respiratory Common normals: normal respiratory effort and clear to auscultation bilaterally Cardio Common normals: regular rate and regular rhythm GI Common normals: Normal to inspection, nondistended, normoactive bowel sounds present, soft to palpation and non-tender Common normals: no CVA tenderness Back & Pelvis Common normals: no thoracic nor lumbar tenderness Extremity Common normals: normal to inspection, full ROM and no calf tenderness Neuro Common normals: CN's II-XII intact bilaterally, moves all extremities, no focal motor deficits and no sensory deficits noted Motor exam: strength 5/5 throughout Psych Common normals: mental status grossly normal, thought process normal, cooperative and affect normal Appearance: well kempt Attitude: calm Speech: normal speech Mood and affect: euthymic mood Thought process: normal thought process Results Labs Labs: Short CBC 07/10/24 Range/Units 06:32 WBC 8.0 (4.0-11.0) 10^3/uL Hgb 9.4 L (12.0-16.0) g/dL Hct 28.5 L (36.0-48.0) % Plt Count 263 (150-450) 10^3/uL OB - PN: A/P Assessment and Plan (1) (spontaneous vaginal delivery): Assessment and Plan: EXAM NONFOCAL, VSS, VOICING NO COMPLAINTS, BOTTLE FEEDING, NEEDS SPORTS BRA TO INHIBIT BREAST MILK PRODUCTION Plan ABOVE Plan - Vaginal Delivery Plan: routine care Time Spent with Patient Time: Total time spent is greater than 50% in coordination of care (as documented) at patient's floor/unit and/or counseling patient: Total time spent with greater than 50% in coordination of care (as documented) at patient's floor/unit and/or counseling patient: less than 15 minutes
[2024-07-10 16:09] VITALS: BP 124/84; PULSE 81; TEMP 36.5
[2024-07-10 23:00] VITALS: BP 139/90; PULSE 92
[2024-07-10 23:01] VITALS: BP 139/90; PULSE 92; TEMP 36.5
[2024-07-11 07:32] VITALS: BP 137/88; PULSE 86
--- NOTE | 2024-07-11 09:10 | P.OBPN_ITS ---
OB - PN: Subj Subjective Patient comments: no complaints and pain well controlled [place] status: doing well Exam Constitutional Vital Signs, click to edit/add: Last Vital Signs Temp 97.7 F 07/10/24 23:01 Pulse 86 07/11/24 07:32 Resp 18 07/10/24 23:01 BP 137/88 07/11/24 07:32 O2 Del Method Room Air 07/11/24 08:00 Documenting provider has reviewed patient's vital signs: yes Common normals: no apparent distress Cardio Common normals: regular rate and regular rhythm GI Common normals: Normal to inspection, nondistended, normoactive bowel sounds present Common normals: no CVA tenderness Extremity Common normals: no calf tenderness OB - PN: A/P Assessment and Plan (1) (spontaneous vaginal delivery): Plan - Vaginal Delivery day: 2 Plan: routine care, discharge home and follow up 6 weeks Time Spent with Patient Time: Total time spent is greater than 50% in coordination of care (as documented) at patient's floor/unit and/or counseling patient: Total time spent with greater than 50% in coordination of care (as documented) at patient's floor/unit and/or counseling patient: less than 15 minutes
[2024-07-11 09:20] VITALS: TEMP 36.9
--- NOTE | 2024-07-11 16:23 | SWNOTE1 ---
SW had consult for late care, non-compliance. Pt was discharged prior to SW completing assessment. SW called [facility] nurse, waiting for call back.
== END 2024-07-11 14:00 | disposition home or self-care (01) | DRG 560 ==
PROVIDERS: Admitting Provider Obstetrics & Gynecology; Visit Provider Obstetrics & Gynecology
DX: O99.824 Streptococcus B carrier state complicating childbirth (principal); Z37.0 Single live birth; Z3A.39 39 weeks gestation of pregnancy; O71.82 Other specified trauma to perineum and vulva
CPT/HCPCS: 36415; 59050; 59410; 85025; 85027; 85610; 85730; 86850; 86900; 86901; J0736